=== PATIENT | female | born 1965 | race Caucasian/White ===

== ENCOUNTER 2017-07-18 18:43 | Inpatient (IN) ==
[2017-07-18] MEDS ORDERED: *HR* LORazepam 1 MG TABLET PO PRN (23:39)
[2017-07-18] MEDS ORDERED: Prochlorperazine 10 MG/2 ML VIAL IVP PRN (23:41)
[2017-07-18] MEDS ORDERED: Ondansetron 4 MG/2 ML VIAL IVP PRN (23:41)
[2017-07-18] MEDS ORDERED: Naloxone 0.4 MG/ML INJ IVP PRN (23:43)
[2017-07-18] MEDS ORDERED: 0.9 % Sodium Chloride 1,000 ML IVC SCH (23:45)
--- NOTE | 2017-07-18 23:52 | Internal Med History&Physical ---
Date of Encounter: 07/18/17 Time of Encounter: 23:00 Assessment and Plan (1) Colitis Current visit: Yes Status: Acute IV cipro/flagyl, NPO, IVF, conservative management for now. Question pancreatitis ?? on CT but unsure - consult GI to assist. Check C.diff given diarrhea (2) Afib Current visit: Yes Status: Acute New AFib, will start PO cardizem in attempt to spare gtt therapy. heparin gtt for now Qualifiers: Atrial fibrillation type: persistent Qualified Code(s): I48.1 - Persistent atrial fibrillation (3) HTN (hypertension), benign Current visit: Yes Status: Acute hold BP med given AFib and adjusting rate agents (4) Depression (emotion) Current visit: Yes Status: Acute stable. Qualifiers: Depression Type: other depression Qualified Code(s): F32.89 - Other specified depressive episodes (5) HLD (hyperlipidemia) Current visit: Yes Status: Acute stable Qualifiers: Hyperlipidemia type: mixed hyperlipidemia Qualified Code(s): E78.2 - Mixed hyperlipidemia Internal Medicine - H&P: HPI Chief complaint: N/V, fast HR History of present illness: Ms. Downey is a 52 year old female who presents with AFib RVR and colitis. She has had bladder mesh removed 3 weeks ago on by doctor in [place], [place] (mesh has been there for what was described as bladder sling surgery). Since then, she had never quite recovered and developed progressive 12-17 lbs weight loss, N/V - several times a day that improve with zofran. Also noted 3 x dark diarrhea last night. She noticed that her heart was racing/palpitating when she say her PCP today where EKG showed AFib. She was transferred to the ED [place] where CT A/P showed LUQ stranding suspicious for colitis, there was concern whether this could be pancreatitis ? as well but lipase/amylase were not elevated (however she does fulfill 2/3 criteria). She describes epigastric region pain with extreme nausea. 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" Past Med Surg Social Fam HX - Past Medical History Medical history: hyperlipidemia, hypertension Psychiatric history: anxiety - Past Surgical History Surgical History: hysterectomy - Social History Smoking Status: Current every day smoker Alcohol use: none Drug use: none - Additional Family History Additional family history: HTN Internal Medicine - H&P: Meds Albuterol Sulfate [Ventolin Hfa] 2 puff IH Q4H PRN 07/14/17 [History] Amlodipine Besylate 10 mg PO BID 07/14/17 [History] Aspirin [Ecotrin] 325 mg PO DAILY 07/14/17 [History] Atorvastatin [Lipitor] 40 mg PO HS 07/14/17 [History] DULoxetine [Cymbalta] 20 mg PO DAILY 07/14/17 [History] Duloxetine HCl [Cymbalta] 60 mg PO DAILY 07/14/17 [History] Ergocalciferol (VITAMIN D2) [Drisdol (50,000 Unit)] 50,000 unit PO QWEEK [History] Estrogens, Conjugated [Premarin Cream] 1 appl VG HS 07/14/17 [History] Gabapentin [Neurontin] 300 mg PO HS 07/14/17 [History] Isosorbide MONOnitrate (24 HR) [Imdur] 30 mg PO DAILY 07/14/17 [History] LORazepam [Ativan] 1 mg PO TID PRN 07/14/17 [History] Losartan Potassium [Cozaar] 100 mg PO DAILY 07/14/17 [History] Metoprolol [Lopressor] 50 mg PO BID 07/14/17 [History] Mirtazapine [Remeron] 15 mg PO HS 07/14/17 [History] [place]-3 Fatty Acids [Fish Oil] 1,200 mg PO BID 07/14/17 [History] Ondansetron ODT [Zofran ODT] 4 mg SL Q4HR #15 tab.rapdis 07/14/17 [Rx] Oxybutynin Chloride [Ditropan Xl] 10 mg PO DAILY 07/14/17 [History] Prazosin HCl [Minipress] 5 mg PO HS 07/14/17 [History] Spironolactone [Aldactone] 100 mg PO DAILY 07/14/17 [History] 3 Allergy/AdvReac Type Severity Reaction Status Date / Time lisinopril AdvReac Difficulty Verified 07/18/17 15:12 Swallowing morphine AdvReac Vomiting Verified 07/18/17 15:12 All Systems PM: A 10-system review of systems was performed and is negative for pertinent findings except as documented above in the HPI. Review of systems: ROS 14 point review of systems reviewed as best as possible given presentation. Pertinent positive or negative as per HPI or otherwise reviewed as negative - Constitutional Vitals: Temp Pulse Resp BP Pulse Ox 99.0 F 102 17 131/82 98 07/18/17 21:40 07/18/17 21:40 07/18/17 21:40 07/18/17 21:40 07/18/17 21:40 Exam: General - AAO x 3 Psych - Appropriate affect/speech. No agitation Eyes - QUINTON. Eye lids intact. No scleral icterus Heart - Irregularly irregular. S1 and S2 present. No added HS/murmurs appreciated. No elevated JVD appreciated. No calf swellings/erythema Lung - Adequate air entry b/l, No crackes/wheezes appreciated GI - Epigastric region pain. No rigidity or guarding. No hepatosplenomegaly/ ascites. BS+ - No CVA/suprapubic tenderness or palpable bladder distension Skin - Intact. No rash/petechiae/ecchymosis. Warm extremities
[2017-07-18] MEDS ORDERED: *HR* Heparin 5,000 UNIT/ML VIAL IVP PRN (23:58)
[2017-07-18] MEDS ORDERED: *HR* Heparin 5,000 UNIT/ML VIAL IVP ONE (23:58)
[2017-07-19] MEDS ORDERED: Ondansetron ODT 4 MG TAB.RAPDIS SL PRN
[2017-07-19] MEDS: dilTIAZem HCl 60 MG TABLET PO SCH ×5 (01:18→21:33)
[2017-07-19] MEDS: Heparin 25,000 UNIT/500 ML D5W 25,000 UNIT/500 ML MLS IVC SCH ×2 (01:18→19:47)
[2017-07-19 03:21] LABS: Hematocrit 32.1 % (35.3-44.9); Hemoglobin 10.6 g/dL (11.5-15.4); Mean Corpuscular Hemoglobin 28.1 pg (28.0-33.3); Mean Corpuscular Volume 85.1 fL (83.0-100.0); Mean Platelet Volume 9.5 fL (9.4-12.4); Platelet Count 366 K/mcL (140-400); Red Blood Count 3.77 M/mcL (3.82-4.97); Red Cell Distribution Width 13.9 % (11.5-14.5)
[2017-07-19 03:34] LABS: BUN/Creatinine Ratio 17 (6-26); Blood Urea Nitrogen 14 mg/dL (7-20); Calcium 8.5 mg/dL (8.6-10.8); Carbon Dioxide 23 mEq/L (19-29); Chloride 101 mEq/L (98-109); Glucose 121 mg/dL (70-99); Magnesium 1.8 mg/dL (1.6-2.6); Osmolality,Calculated 280 (280-300); Potassium 3.5 mEq/L (3.5-4.5); Sodium 134 mEq/L (136-145); eGFR For African Americans > 60 (> 60); eGFR For Non-African Americans > 60 (> 60)
[2017-07-19] MEDS: MetroNIDAZOLE 500 MG/100 ML 500 MG/100 ML BAG IVPB SCH ×3 (03:37→18:51)
[2017-07-19] MEDS: Aspirin Enteric Coated 325 MG Tablet PO SCH (09:29)
[2017-07-19] MEDS ORDERED: 0.9 % Sodium Chloride 1,000 ML IVC SCH (10:39)
--- NOTE | 2017-07-19 10:42 | Internal Med Progress Note ---
Date of Encounter: 07/19/17 Time of Encounter: 10:40 - Assessment and plan (1) Sepsis Current Visit: Yes Status: Acute Assessment and plan: pt does meet sepsis criteria with fever T max 101.7, elevated WBC, source of ins as colitis Cont empirical abx Cipro and Flagyl cont gentle IV hydration Started on clear liquid diet today trend on WBC Check stool for C . Diff Qualifiers: Qualified Code(s): A41.9 - Sepsis, unspecified organism (2) Colitis Current Visit: Yes Status: Acute Assessment and plan: Cont empirical abx Cipro and Flagyl cont gentle IV hydration Started on clear liquid diet today (3) New onset a-fib Current Visit: Yes Status: Acute Assessment and plan: New onset A fib - could be due to sepsis with colitis as well stress with recent bladder surgery rate controlled Cont home med Metoprolol 50mg BID pt was already give PO Cardizem..will cont that for now Ordered 2 D Echo Cardiology consulted With her recent Stroke like symptoms --she is high risk cont Heparin gtt for now (4) Diastolic CHF Current Visit: Yes Status: Chronic Assessment and plan: Reviewed 2 D Echo from 02/06 showed normal LVEF 60 %. but moderate LV diastolic dysfunction not in exacerbation cont gentle hydration only cont Metoprolol Qualifiers: Qualified Code(s): I50.32 - Chronic diastolic (congestive) heart failure (5) HTN (hypertension), benign Current Visit: Yes Status: Acute Assessment and plan: stable..cont current meds (6) HLD (hyperlipidemia) Current Visit: Yes Status: Acute Assessment and plan: on statin Qualifiers: Hyperlipidemia type: mixed hyperlipidemia Qualified Code(s): E78.2 - Mixed hyperlipidemia - Subjective Interval history: She has had bladder mesh removed 3 weeks ago on by doctor in [place], [place] (mesh has been there for what was described as bladder sling surgery). Since then, she had never quite recovered and developed progressive 12-17 lbs weight loss, N/V - several times a day that improve with zofran. Also noted 3 x dark diarrhea last night. She noticed that her heart was racing/palpitating when she say her PCP today where EKG showed AFib. She was transferred to the ED [place] where CT A/P showed LUQ stranding suspicious for colitis, there was concern whether this could be pancreatitis ? as well but lipase/amylase were not elevated (however she does fulfill 2/3 criteria). She describes epigastric region pain with extreme nausea. 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 She went to see PCP as f/u after recent surgery and mentioned about her Rt side weakness symptoms. PCP did an EKG which showed A fib and sent it over here. Denied any CP / SOB. Still has lower abdomen pain and nausea. Still has watery runny diarrhea. - Constitutional Vitals: Temp Pulse Resp BP Pulse Ox 100.6 F H 91 16 110/66 96 07/19/17 09:27 07/19/17 09:27 07/19/17 09:27 07/19/17 09:27 07/19/17 09:27 General appearance: Present: A&O X 3, no acute distress, answers questions appropriately - Head Head exam: Present: atraumatic, normal inspection - Respiratory Respiratory exam: Present: decreased breath sounds, tachypnea. Absent: respiratory distress, rhonchi - Cardiovascular Cardiovascular exam: Present: RRR, +S1, +S2. Absent: systolic murmur - GI/Abdominal GI/Abdominal exam: Present: normal bowel sounds, soft, tenderness (lower abdomen region). Absent: rebound, rigid - Extremities Exam Extremities exam: Absent: calf tenderness, pedal edema, tenderness - Neurological Exam Neurological exam: Present: alert, CN II-XII intact, oriented X3, reflexes normal, no focal deficits, strengths equal and symetr throughout. Absent: pronater drift, facial droop, speech deficit - Psychiatric Psychiatric exam: Present: normal affect, normal mood Internal Medicine: Result - Labs CBC & Chem 7: 07/19/17 03:12 07/19/17 03:12 Labs: Short CBC 07/19/17 Range/Units 03:12 WBC 18.9 H (4.3-11.1) K/mcL Hgb 10.6 L D (11.5-15.4) g/dL Hct 32.1 L (35.3-44.9) % Plt Count 366 (140-400) K/mcL BMP 07/19/17 03:12 Sodium 134 L D Potassium 3.5 Chloride 101 Carbon Dioxide 23 BUN 14 Creatinine 0.83 Glucose 121 H Calcium 8.5 L Consult Discharge Plan - Plan Referrals: Oleksandr Meier MD [Primary Care Provider] -
[2017-07-19] MEDS: Acetaminophen 325 MG TABLET PO PRN ×2 (12:00→18:56)
--- NOTE | 2017-07-19 12:24 | Cardiology Consult Note ---
Date of Encounter: 07/19/17 Time of Encounter: 12:00 Assessment and Plan (1) Sepsis Current Visit: Yes Status: Acute Per cardiology: -Elevated WBC, fever, and tachycardia. -Recent surgery 3 weeks ago. -ON IV ATB. -Management per primary service. Qualifiers: Sepsis type: sepsis due to unspecified organism Qualified Code(s): A41.9 - Sepsis, unspecified organism (2) New onset a-fib Current Visit: Yes Status: Acute Per cardiology: -New onset a.fib in the setting of sepsis. -On cardizem 60 QID, and beta darby. -Average HR 99. -On heparin drip and ASA. -Admits to recent CVA like symtpoms. CT head pending. -[id number] score 2 (gender and HTN). CUrrently on heparin drip until need for surgical intervention is ruled out. 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 -Stress 01/2016 negative for infarct or ischemia. -Echo 07/19/17 with LVEF 60%, indeterminate diastolic function, mild to moderately dilated left atrium, mild TR, all desai with normal motion. -Will start long acting cardizem tomorrow morning. 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 Discussion w patient/family: The assessment and plan as outlined above was discussed with the patient who expressed understanding and agreement. All questions were answered. Thank you for involving us in the care of your patient. Please call with any questions. Discussed and reviewed with . History of Present Illness Consult date: 07/19/17 Requesting physician: Isabella Márquez Consult reason: a.fib recent CVA symptoms Chief complaint: nausea/vomiting post op History of present illness: Ms. Downey is a 52 year old female with a relevant past medical history of HTN , hyperlipidemia, former tobacco user, depression, CKD. Patient reports she had bladder mesh placed "years ago" at the time of her hysterectomy. Patient states she has had trouble with pain since. Patient had surgery 3 weeks ago to remove mesh and replace with "cadaver tissue." Patient states she was in the hospital overnight and had one episode of vomiting prior to discharge. Patient states at home she has progressive weakness, increased vomiting, and fevers. Patient also reports chest discomfort when she would vomit. Patient reports palpitations. Patient states about a week ago, had right sided weakness that somewhat resolved. Patient denies current chest pain or palpitations. Past Med Surg Social Fam HX - Past Medical History Attestation: Yes The following information was validated with the patient. Source: patient, old records reviewed Medical history: atrial fibrillation, hyperlipidemia, hypertension, renal disease Psychiatric history: anxiety - Past Surgical History Surgical History: hysterectomy, other - Social History Smoking Status: Former smoker Smokeless Tobacco Status: No Alcohol use: none Drug use: none - Family History Father Age: 70 Living Status: Still Living Hx Family Cardiac Disorders: Yes Hx Family Respiratory Disorders: Yes (COPD) Hx Family Endocrine Disorder: Yes (DM type 2) Medications and Allergies Albuterol Sulfate [Ventolin Hfa] 2 puff IH Q4H PRN 07/14/17 [History] Amlodipine Besylate 10 mg PO BID 07/14/17 [History] Aspirin [Ecotrin] 325 mg PO DAILY 07/14/17 [History] Atorvastatin [Lipitor] 40 mg PO HS 07/14/17 [History] DULoxetine [Cymbalta] 80 mg PO DAILY 07/14/17 [History] Ergocalciferol (VITAMIN D2) [Drisdol (50,000 Unit)] 50,000 unit PO QWEEK [History] Estrogens, Conjugated [Premarin Cream] 1 appl VG HS 07/14/17 [History] Gabapentin [Neurontin] 300 mg PO HS 07/14/17 [History] Isosorbide MONOnitrate (24 HR) [Imdur] 30 mg PO DAILY 07/14/17 [History] LORazepam [Ativan] 1 mg PO TID PRN 07/14/17 [History] Losartan Potassium [Cozaar] 100 mg PO DAILY 07/14/17 [History] Metoprolol [Lopressor] 50 mg PO BID 07/14/17 [History] Mirtazapine [Remeron] 15 mg PO HS 07/14/17 [History] [place]-3 Fatty Acids [Fish Oil] 1,200 mg PO BID 07/14/17 [History] Ondansetron ODT [Zofran ODT] 4 mg SL Q4HR #15 tab.rapdis 07/14/17 [Rx] Oxybutynin Chloride [Ditropan Xl] 10 mg PO DAILY 07/14/17 [History] Prazosin HCl [Minipress] 5 mg PO HS 07/14/17 [History] Spironolactone [Aldactone] 100 mg PO DAILY 07/14/17 [History] Docusate [Colace] 100 mg PO BID 07/19/17 [History] 3 Allergy/AdvReac Type Severity Reaction Status Date / Time lisinopril AdvReac Difficulty Verified 07/18/17 15:12 Swallowing morphine AdvReac Vomiting Verified 07/18/17 15:12 All Systems Review: A 10-system review of systems was performed and is negative for pertinent findings except as documented above in the HPI. - Constitutional Constitutional: fever(s), weakness - Cardiovascular Cardiovascular: as per HPI, irregular heart rhythm, palpitations - Gastrointestinal Gastrointestinal: nausea Physical Examination Vital Signs, Last 4 Hours Temp Pulse Resp BP Pulse Ox 07/19/17 12:15 99.0 F 79 16 109/54 95 07/19/17 09:27 100.6 F H 91 16 110/66 96 General: Conversant, No Apparent Distress HEENT: Atraumatic, Normocephaly, Mucus Membranes Moist Neck: No JVD, Normal carotid pulses Cardiac: Normal S1 and S2, No Murmur, Other (Irregularly irregular) Lungs: Normal Breath Sounds, No Wheeze, Rales, Rhonchi Neuro: Alert and responsive, No focal deficits noted Abdomen: Soft, Non-Tender Skin: No rashes noted on visualized skin Musculoskeletal: No Chest Wall Tenderness, Other (RIght hand glass tube bender weaker than left. Bilateral foot strength equal. Smile symmetrical. ) Extremities: No Clubbing, No Cyanosis, No Edema, Normal Pulses Results 07/19/17 03:12 07/19/17 03:12 Lab Results Active Medications Acetaminophen (Tylenol) 650 mg PO Q6HR PRN PRN Reason: Fever Stop: 01/18/18 10:23 Last Admin: 07/19/17 12:00 Dose: 650 mg Albuterol Sulfate (Albuterol Inhaler) 2 puff IH Q4H PRN PRN Reason: Shortness Of Breath Stop: 01/17/18 23:40 Aspirin (Aspirin Ec) 325 mg PO DAILY [facility]ENDRA Stop: 01/18/18 09:01 Last Admin: 07/19/17 09:29 Dose: 325 mg Atorvastatin Calcium (Lipitor) 40 mg PO HS [facility] Stop: 01/18/18 21:01 Diltiazem HCl (Cardizem) 60 mg PO QID [facility] Stop: 01/17/18 23:46 Last Admin: 07/19/17 09:29 Dose: 60 mg Duloxetine HCl (Cymbalta) 20 mg PO DAILY KENDRA Stop: 01/18/18 09:01 Last Admin: 07/19/17 09:30 Dose: 20 mg Gabapentin (Neurontin) 300 mg PO HS [facility] Stop: 01/18/18 21:01 Heparin Sodium (Porcine) (Heparin) 5,800 unit 70 unit/kg (5800 unit) IVP Q6HR PRN PRN Reason: SEE COMMENTS Stop: 01/17/18 23:59 Last Admin: 07/19/17 09:36 Dose: 5,800 unit Heparin Sodium (Porcine) (Heparin) 2,900 unit 35 unit/kg (2900 unit) IVP Q6H PRN PRN Reason: SEE COMMENTS Stop: 01/17/18 23:59 Ciprofloxacin Lactate (Cipro Premix 400 Mg/200 Ml) 400 mg in 200 mls @ 200 mls/ hr IVPB Q12HR [facility] Stop: 01/18/18 06:01 Last Infusion: 07/19/17 08:16 Dose: Infused Metronidazole (Flagyl Premix 500 Mg/100 Ml) 500 mg in 100 mls @ 100 mls/hr IVPB Q8H [facility] Stop: 01/18/18 03:01 Last Admin: 07/19/17 12:00 Dose: 100 mls/hr Heparin Sodium/Dextrose (Heparin 25,000 Unit/500 Ml D5w) 25,000 unit in 500 mls @ 23.1 mls/hr IVC .[id number] KENDRA; 14 UNIT/KG/HR PRN Reason: Protocol Stop: 01/17/18 23:46 Last Titration: 07/19/17 09:31 Dose: 18.24 unit/kg/hr, 30.1 mls/hr Sodium Chloride (0.9 % Sodium Chloride) 1,000 mls @ 75 mls/hr IVC .[id number] [facility] Stop: 01/18/18 10:39 Lorazepam (Ativan) 1 mg PO TID PRN PRN Reason: Anxiety Stop: 01/17/18 23:40 Metoprolol Tartrate (Lopressor) 50 mg PO BID [facility] Stop: 01/18/18 09:01 Last Admin: 07/19/17 09:30 Dose: 50 mg Mirtazapine (Remeron) 15 mg PO HS [facility] Stop: 01/18/18 21:01 Naloxone HCl (Narcan) 0.4 mg IVP Q2MIN PRN PRN Reason: Opioid Reversal Stop: 01/17/18 23:44 Ondansetron HCl (Zofran) 4 mg IVP Q6HR PRN; Protocol PRN Reason: Nausea Stop: 01/17/18 23:42 Last Admin: 07/19/17 01:31 Dose: 4 mg Ondansetron HCl (Zofran Odt) 4 mg SL Q4HR PRN PRN Reason: Nausea Stop: 01/18/18 00:01 Oxybutynin Chloride (Ditropan) 5 mg PO BID [facility] Stop: 01/18/18 09:01 Last Admin: 07/19/17 09:30 Dose: 5 mg Prochlorperazine Edisylate (Compazine) 10 mg IVP Q6HR PRN PRN Reason: Nausea Stop: 01/17/18 23:42 Laboratory Tests 11/05/16 07/18/17 07/19/17 11:12 15:42 03:12 WBC 18.9 H Hgb 10.6 L D Potassium Creatinine Magnesium Troponin I 0.00 TSH 1.427 07/19/17 03:12 WBC Hgb Potassium 3.5 Creatinine 0.83 Magnesium 1.8 Troponin I TSH - Imaging and Cardiology Chest Xray: report reviewed Stress Test: report reviewed Echo: pending, report reviewed - EKG Interpretation EKG results cardiology: personally reviewed (ECG with atrial fibrillation with RVR.), other (Telemetry reviewed with average HR 99, atrial fibrillation. PVCs noted.) Consult Discharge Plan - Plan Referrals: Oleksandr Meier MD [Primary Care Provider] -
[2017-07-19] MEDS: *HR* Heparin 5,000 UNIT/ML VIAL IVP PRN (17:39)
[2017-07-19] MEDS: Mirtazapine 15 MG TABLET PO SCH (21:33)
[2017-07-19] MEDS: Gabapentin 300 MG CAPSULE PO SCH (21:34)
[2017-07-20 00:28] LABS: Basophils % 0.2 %; Eosinophils # 0.2 K/mcL (0.0-0.6); Eosinophils % 0.9 %; Hematocrit 32.1 % (35.3-44.9); Hemoglobin 10.2 g/dL (11.5-15.4); Immature Granulocytes % 1.6 % (0-4); Lymphocytes % 10.9 %; Mean Corpuscular HGB Conc 31.8 g/dL (31.6-35.5); Mean Corpuscular Hemoglobin 27.4 pg (28.0-33.3); Mean Corpuscular Volume 86.3 fL (83.0-100.0); Mean Platelet Volume 9.6 fL (9.4-12.4); Monocytes # 1.8 K/mcL (0.0-1.3); Neutrophils # 13.8 K/mcL (1.6-8.9); Nucleated Red Blood Cells 0.1 /100 WBC (0); Platelet Count 376 K/mcL (140-400); Red Blood Count 3.72 M/mcL (3.82-4.97); Red Cell Distribution Width 14.4 % (11.5-14.5); Segmented Neutrophils % 76.4 %
[2017-07-20 00:50] LABS: BUN/Creatinine Ratio 16 (6-26); Blood Urea Nitrogen 12 mg/dL (7-20); Calcium 8.9 mg/dL (8.6-10.8); Carbon Dioxide 20 mEq/L (19-29); Chloride 103 mEq/L (98-109); Glucose 137 mg/dL (70-99); Osmolality,Calculated 278 (280-300); Potassium 3.6 mEq/L (3.5-4.5); Sodium 133 mEq/L (136-145); eGFR For African Americans > 60 (> 60); eGFR For Non-African Americans > 60 (> 60)
[2017-07-20] MEDS: *HR* Heparin 5,000 UNIT/ML VIAL IVP PRN ×2 (00:56→08:33)
[2017-07-20] MEDS: MetroNIDAZOLE 500 MG/100 ML 500 MG/100 ML BAG IVPB SCH ×3 (03:43→19:34)
[2017-07-20] MEDS: Acetaminophen 325 MG TABLET PO PRN (05:42)
[2017-07-20] MEDS ORDERED: Diltiazem CD (24hr) 240 MG CAPSULE PO SCH (09:00)
[2017-07-20] MEDS: Aspirin Enteric Coated 325 MG Tablet PO SCH (09:18)
--- NOTE | 2017-07-20 09:58 | Internal Med Progress Note ---
Date of Encounter: 07/20/17 Time of Encounter: 09:53 - Assessment and plan (1) Sepsis Current Visit: Yes Status: Acute Assessment and plan: pt did meet sepsis criteria with fever T max 101.7, elevated WBC, source of inf as colitis Cont empirical abx Cipro and Flagyl Started on clear liquid diet today WBC is still elevated ruled out C . Diff Qualifiers: Sepsis type: sepsis due to unspecified organism Qualified Code(s): A41.9 - Sepsis, unspecified organism (2) Colitis Current Visit: Yes Status: Acute Assessment and plan: Cont empirical abx Cipro and Flagyl tolerating clear liquid diet well Still has mild abdominal pain and her WBC is still elevated Consulted surgery for further evaluation May repeat another CT of abd / Pelvis with PO contrast in AM if her symptoms does not get better by tomorrow (3) New onset a-fib Current Visit: Yes Status: Acute Assessment and plan: New onset A fib - could be due to sepsis with colitis as well stress with recent bladder surgery rate controlled Cont home med Metoprolol 50mg BID Reviewed 2 D Echo - Normal LVEF, indeterminate diastolic dysfunction Cardiology on board.. recommend to continue current care With her recent Stroke like symptoms --she is high risk cont Heparin gtt for now (4) Diastolic CHF Current Visit: Yes Status: Chronic Assessment and plan: Reviewed 2 D Echo not in exacerbation cont Metoprolol will use Lasix PRN Qualifiers: Qualified Code(s): I50.32 - Chronic diastolic (congestive) heart failure (5) HTN (hypertension), benign Current Visit: Yes Status: Acute Assessment and plan: stable..cont current meds (6) HLD (hyperlipidemia) Current Visit: Yes Status: Acute Assessment and plan: on statin Qualifiers: Hyperlipidemia type: mixed hyperlipidemia Qualified Code(s): E78.2 - Mixed hyperlipidemia - Subjective Interval history: She has had bladder mesh removed 3 weeks ago on by doctor in [place], [place] (mesh has been there for what was described as bladder sling surgery). Since then, she had never quite recovered and developed progressive 12-17 lbs weight loss, N/V - several times a day that improve with zofran. Also noted 3 x dark diarrhea last night. She noticed that her heart was racing/palpitating when she say her PCP today where EKG showed AFib. She was transferred to the ED [place] where CT A/P showed LUQ stranding suspicious for colitis, there was concern whether this could be pancreatitis ? as well but lipase/amylase were not elevated (however she does fulfill 2/3 criteria). She describes epigastric region pain with extreme nausea. 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 She went to see PCP as f/u after recent surgery and mentioned about her Rt side weakness symptoms. PCP did an EKG which showed A fib and sent it over here. She is resting comfortably today. Denied any CP / SOB, however does have some [place]. Still has lower abdomen pain and nausea. No more diarrhea. - Constitutional Vitals: Temp Pulse Resp BP Pulse Ox 98.1 F 92 21 102/52 98 07/20/17 07:00 07/20/17 07:00 07/20/17 07:00 07/20/17 07:00 07/20/17 07:00 General appearance: Present: A&O X 3, no acute distress, answers questions appropriately - Head Head exam: Present: atraumatic, normal inspection - Respiratory Respiratory exam: Present: decreased breath sounds, wheezes. Absent: rales, respiratory distress, rhonchi - Cardiovascular Cardiovascular exam: Present: RRR, +S1, +S2. Absent: systolic murmur - GI/Abdominal GI/Abdominal exam: Present: normal bowel sounds, soft, tenderness (LUQ and LLL) . Absent: rebound, rigid - Extremities Exam Extremities exam: Absent: calf tenderness, pedal edema, tenderness - Neurological Exam Neurological exam: Present: alert, oriented X3 - Psychiatric Psychiatric exam: Present: normal affect, normal mood Internal Medicine: Result - Labs CBC & Chem 7: 07/20/17 00:19 07/20/17 00:19 Labs: Short CBC 07/20/17 Range/Units 00:19 WBC 18.1 H (4.3-11.1) K/mcL Hgb 10.2 L (11.5-15.4) g/dL Hct 32.1 L (35.3-44.9) % Plt Count 376 (140-400) K/mcL Neutrophils # 13.8 H (1.6-8.9) K/mcL BMP 07/20/17 00:19 Sodium 133 L Potassium 3.6 Chloride 103 Carbon Dioxide 20 BUN 12 Creatinine 0.75 Glucose 137 H Calcium 8.9 - Impressions Impressions Head CT 07/19/17 10:37 IMPRESSION: No acute intracranial abnormality. D/ / Murphy Garcia MD / Murphy Garcia MD Interpreting Provider: Murphy Garcia MD Consult Discharge Plan - Plan Referrals: Oleksandr Meier MD [Primary Care Provider] -
--- NOTE | 2017-07-20 10:32 | Cardiology Progress Note ---
Date of Encounter: 07/20/17 Time of Encounter: 10:15 Assessment and Plan (1) Sepsis Current Visit: Yes Status: Acute Per cardiology: -Elevated WBC, fever, and tachycardia. -Recent surgery 3 weeks ago. -ON IV ATB. -Management per primary service. Qualifiers: Sepsis type: sepsis due to unspecified organism Qualified Code(s): A41.9 - Sepsis, unspecified organism (2) New onset a-fib Current Visit: Yes Status: Acute Per cardiology: -New onset a.fib in the setting of sepsis. -On cardizem and beta darby. -Average HR 73, atrial fibrillation. -On heparin drip and ASA. -Admits to recent CVA like symtpoms. CT head negative.. -[id number] score 2 (gender and HTN). CUrrently on heparin drip until need for surgical intervention is ruled out. Recommend long term acute care registered nurse anticoagulation. Surgical servcies has been consulted. -Stress 01/2016 negative for infarct or ischemia. -Echo 07/19/17 with LVEF 60%, indeterminate diastolic function, mild to moderately dilated left atrium, mild TR, all desai with normal motion. -Recommend long term acute care registered nurse anticoagulation once need for surgical intervention is ruled out. Discussion w patient/family: The assessment and plan as outlined above was discussed with the patient who expressed understanding and agreement. All questions were answered. Thank you for involving us in the care of your patient. Please call with any questions. Discussed and reviewed with . Subjective Principal diagnosis: Sepsis Interval history: Patient states her pain is worse today. Patient denies palpitations or fluttering. Objective Vital Signs, Last 4 Hours Temp Pulse Resp BP Pulse Ox 07/20/17 10:20 71 105/43 07/20/17 07:00 98.1 F 92 21 102/52 98 General: Conversant, No Apparent Distress HEENT: Atraumatic, Normocephaly, Mucus Membranes Moist Neck: No JVD, Normal carotid pulses Cardiac: Normal S1 and S2, No Murmur, Other (Irregularly irregular) Lungs: Normal Breath Sounds, No Wheeze, Rales, Rhonchi Neuro: Alert and responsive, No focal deficits noted Abdomen: Soft, Other (Tender) Skin: No rashes noted on visualized skin Musculoskeletal: No Chest Wall Tenderness Extremities: No Clubbing, No Cyanosis, No Edema, Normal Pulses Results 07/20/17 00:19 07/20/17 00:19 Lab Results Impressions Head CT 07/19/17 10:37 IMPRESSION: No acute intracranial abnormality. D/ / Murphy Garcia MD / Murphy Garcia MD Interpreting Provider: Murphy Garcia MD Active Medications Acetaminophen (Tylenol) 650 mg PO Q6HR PRN PRN Reason: Fever Stop: 01/18/18 10:23 Last Admin: 07/20/17 05:42 Dose: 650 mg Albuterol Sulfate (Albuterol Inhaler) 2 puff IH Q4H PRN PRN Reason: Shortness Of Breath Stop: 01/17/18 23:40 Aspirin (Aspirin Ec) 325 mg PO DAILY KENDRA Stop: 01/18/18 09:01 Last Admin: 07/20/17 09:18 Dose: 325 mg Atorvastatin Calcium (Lipitor) 40 mg PO HS KENDRA Stop: 01/18/18 21:01 Last Admin: 07/19/17 21:33 Dose: 40 mg Diltiazem HCl (Cardizem Cd) 240 mg PO DAILY KENDRA Stop: 01/19/18 09:01 Duloxetine HCl (Cymbalta) 20 mg PO DAILY KENDRA Stop: 01/18/18 09:01 Last Admin: 07/20/17 09:18 Dose: 20 mg Gabapentin (Neurontin) 300 mg PO HS KENDRA Stop: 01/18/18 21:01 Last Admin: 07/19/17 21:34 Dose: 300 mg Heparin Sodium (Porcine) (Heparin) 5,800 unit 70 unit/kg (5800 unit) IVP Q6HR PRN PRN Reason: SEE COMMENTS Stop: 01/17/18 23:59 Last Admin: 07/19/17 09:36 Dose: 5,800 unit Heparin Sodium (Porcine) (Heparin) 2,900 unit 35 unit/kg (2900 unit) IVP Q6H PRN PRN Reason: SEE COMMENTS Stop: 01/17/18 23:59 Last Admin: 07/20/17 08:33 Dose: 2,900 unit Ciprofloxacin Lactate (Cipro Premix 400 Mg/200 Ml) 400 mg in 200 mls @ 200 mls/ hr IVPB Q12HR KENDRA Stop: 01/18/18 06:01 Last Infusion: 07/20/17 08:15 Dose: Infused Metronidazole (Flagyl Premix 500 Mg/100 Ml) 500 mg in 100 mls @ 100 mls/hr IVPB Q8H [facility] Stop: 01/18/18 03:01 Last Infusion: 07/20/17 08:14 Dose: Infused Heparin Sodium/Dextrose (Heparin 25,000 Unit/500 Ml D5w) 25,000 unit in 500 mls @ 23.1 mls/hr IVC .[id number] KENDRA; 14 UNIT/KG/HR PRN Reason: Protocol Stop: 01/17/18 23:46 Last Titration: 07/20/17 08:30 Dose: 23.81 unit/kg/hr, 39.3 mls/hr Lorazepam (Ativan) 1 mg PO TID PRN PRN Reason: Anxiety Stop: 01/17/18 23:40 Metoprolol Tartrate (Lopressor) 50 mg PO BID [facility] Stop: 01/18/18 09:01 Last Admin: 07/20/17 09:19 Dose: 50 mg Mirtazapine (Remeron) 15 mg PO HS [facility] Stop: 01/18/18 21:01 Last Admin: 07/19/17 21:33 Dose: 15 mg Naloxone HCl (Narcan) 0.4 mg IVP Q2MIN PRN PRN Reason: Opioid Reversal Stop: 01/17/18 23:44 Ondansetron HCl (Zofran) 4 mg IVP Q6HR PRN; Protocol PRN Reason: Nausea Stop: 01/17/18 23:42 Last Admin: 07/19/17 01:31 Dose: 4 mg Ondansetron HCl (Zofran Odt) 4 mg SL Q4HR PRN PRN Reason: Nausea Stop: 01/18/18 00:01 Oxybutynin Chloride (Ditropan) 5 mg PO BID [facility] Stop: 01/18/18 09:01 Last Admin: 07/20/17 09:18 Dose: 5 mg Prochlorperazine Edisylate (Compazine) 10 mg IVP Q6HR PRN PRN Reason: Nausea Stop: 01/17/18 23:42 Laboratory Tests 07/20/17 07/20/17 00:19 00:19 WBC 18.1 H Hgb 10.2 L Potassium 3.6 Creatinine 0.75 Magnesium 2.0 - Imaging and Cardiology Chest Xray: report reviewed Echo: report reviewed - EKG Interpretation EKG results cardiology: other (Telemetry reviewed with average HR 73, atrial fibrillation. Longest pause 2.7 seconds. PVCs noted.) Consult Discharge Plan - Plan Referrals: Oleksandr Meier MD [Primary Care Provider] -
[2017-07-20 11:19] LABS: Albumin/Globulin Ratio 0.4 (1.1-2.2); Bilirubin,Direct 0.4 mg/dL (0.0-0.5); Total Protein 5.7 g/dL (6.0-8.3)
[2017-07-20 11:21] LABS: Albumin 1.7 g/dL (3.5-5.0)
[2017-07-20 11:41] LABS: Bilirubin,Total 0.4 mg/dL (0.2-1.2)
[2017-07-20] MEDS: Heparin 25,000 UNIT/500 ML D5W 25,000 UNIT/500 ML MLS IVC SCH (12:04)
--- NOTE | 2017-07-20 14:13 | General Surgery Consult Note ---
<Triston Gross - Last Filed: 07/20/17 14:11> Date of Encounter: 07/20/17 Time of Encounter: 10:00 Assessment and Plan (1) Colitis Current Visit: Yes Status: Acute Most likely, given normal amylase, lipase, and LFTs C. Diff negative Will follow clinically No need for surgical intervention at this time Continue antibiotics (2) Afib Current Visit: Yes Status: Acute Management per cardiology Qualifiers: Atrial fibrillation type: persistent Qualified Code(s): I48.1 - Persistent atrial fibrillation History of Present Illness Consult date: 07/20/17 Reason for consult: other (colitis vs pancreatitis) History of present illness: Susan Downey is a 52 yo female who presents with "bladder infection." Patient states that she had removal of bladder mesh replaced with sling on 06/26/17 in [place], [place]. Since then she developed fever, nausea, vomiting and weight loss. She denies any abdominal pain. CT showed circumferential wall thickening of the splenic flexure in addition to stranding and fluid in the LUQ encasing the pancreatic tail, possibly representing pancreatitis. Past Med Surg Social Fam HX - Past Medical History Medical history: atrial fibrillation, hyperlipidemia, hypertension, renal disease Psychiatric history: anxiety - Past Surgical History Surgical History: hysterectomy, other - Social History Smoking Status: Former smoker Smokeless Tobacco Status: No Alcohol use: none Drug use: none - Family History Father Age: 70 Living Status: Still Living Hx Family Cardiac Disorders: Yes Hx Family Respiratory Disorders: Yes (COPD) Hx Family Endocrine Disorder: Yes (DM type 2) Medications and Allergies Albuterol Sulfate [Ventolin Hfa] 2 puff IH Q4H PRN 07/14/17 [History] Amlodipine Besylate 10 mg PO BID 07/14/17 [History] Aspirin [Ecotrin] 325 mg PO DAILY 07/14/17 [History] Atorvastatin [Lipitor] 40 mg PO HS 07/14/17 [History] DULoxetine [Cymbalta] 80 mg PO DAILY 07/14/17 [History] Ergocalciferol (VITAMIN D2) [Drisdol (50,000 Unit)] 50,000 unit PO QWEEK [History] Estrogens, Conjugated [Premarin Cream] 1 appl VG HS 07/14/17 [History] Gabapentin [Neurontin] 300 mg PO HS 07/14/17 [History] Isosorbide MONOnitrate (24 HR) [Imdur] 30 mg PO DAILY 07/14/17 [History] LORazepam [Ativan] 1 mg PO TID PRN 07/14/17 [History] Losartan Potassium [Cozaar] 100 mg PO DAILY 07/14/17 [History] Metoprolol [Lopressor] 50 mg PO BID 07/14/17 [History] Mirtazapine [Remeron] 15 mg PO HS 07/14/17 [History] [place]-3 Fatty Acids [Fish Oil] 1,200 mg PO BID 07/14/17 [History] Ondansetron ODT [Zofran ODT] 4 mg SL Q4HR #15 tab.rapdis 07/14/17 [Rx] Oxybutynin Chloride [Ditropan Xl] 10 mg PO DAILY 07/14/17 [History] Prazosin HCl [Minipress] 5 mg PO HS 07/14/17 [History] Spironolactone [Aldactone] 100 mg PO DAILY 07/14/17 [History] Docusate [Colace] 100 mg PO BID 07/19/17 [History] 3 Allergy/AdvReac Type Severity Reaction Status Date / Time lisinopril AdvReac Difficulty Verified 07/18/17 15:12 Swallowing morphine AdvReac Vomiting Verified 07/18/17 15:12 Review of Systems All systems PM: A 10-system review of systems was performed and is negative for pertinent findings except as documented above in the HPI. - Constitutional anorexia, fever(s), weight loss - Gastrointestinal nausea, vomiting, no abdominal pain General Surgery Exam Initial Vital Signs Temp Pulse Resp BP Pulse Ox 99.2 F 102 22 132/82 98 07/18/17 21:37 07/18/17 21:37 07/18/17 21:37 07/18/17 21:37 07/18/17 21:37 - General physical appearance well developed, well nourished, no distress, no pain - Eyes normal ocular movement - ENT atraumatic, normocephalic - Respiratory normal expansion, normal respiratory effort, clear to auscultation - Cardiovascular Cardiovascular exam: Present: irregular rhythm - Abdomen Abdomen general surgery: Present: bowel sounds present, soft, non tender - Musculoskeletal Present: normal posture - Psychiatric Psychiatric general surgery: Present: appropriate, speech is normal Exam Initial Vital Signs Temp Pulse Resp BP Pulse Ox 99.2 F 102 22 132/82 98 07/18/17 21:37 07/18/17 21:37 07/18/17 21:37 07/18/17 21:37 07/18/17 21:37 Results - Labs 07/20/17 00:19 07/20/17 00:19 Abnormal lab results WBC 18.1 K/mcL (4.3-11.1) H 07/20/17 00:19 RBC 3.72 M/mcL (3.82-4.97) L 07/20/17 00:19 Hgb 10.2 g/dL (11.5-15.4) L 07/20/17 00:19 Hct 32.1 % (35.3-44.9) L 07/20/17 00:19 MCH 27.4 pg (28.0-33.3) L 07/20/17 00:19 Neutrophils # 13.8 K/mcL (1.6-8.9) H 07/20/17 00:19 Monocytes # 1.8 K/mcL (0.0-1.3) H 07/20/17 00:19 Nucleated RBCs/100 WBC 0.1 /100 WBC (0) H 07/20/17 00:19 APTT 53.8 Seconds (26.0-36.0) H 07/20/17 07:19 Sodium 133 mEq/L (136-145) L 07/20/17 00:19 Glucose 137 mg/dL (70-99) H 07/20/17 00:19 POC Glucose 141 (58-89) H 07/20/17 11:49 Calculated Osmolality 278 (280-300) L 07/20/17 00:19 Alkaline Phosphatase 169 Units/L (38-126) H 07/20/17 10:54 Serum Total Protein 5.7 g/dL (6.0-8.3) L D 07/20/17 10:54 Albumin 1.7 g/dL (3.5-5.0) L D 07/20/17 10:54 Globulin 4.0 g/dL (2.4-3.5) H 07/20/17 10:54 Albumin/Globulin Ratio 0.4 (1.1-2.2) L 07/20/17 10:54 Diabetes panel 07/20/17 07/20/17 Range/Units 00:19 10:54 Sodium 133 L (136-145) mEq/L Potassium 3.6 (3.5-4.5) mEq/L Chloride 103 (98-109) mEq/L Carbon Dioxide 20 (19-29) mEq/L BUN 12 (7-20) mg/dL Creatinine 0.75 (0.57-1.11) mg/dL Glucose 137 H (70-99) mg/dL Calcium 8.9 (8.6-10.8) mg/dL AST 23 (5-34) Units/L ALT 19 (0-55) Units/L Alkaline Phosphatase 169 H (38-126) Units/L Albumin 1.7 L D (3.5-5.0) g/dL Calcium panel 07/20/17 07/20/17 Range/Units 00:19 10:54 Calcium 8.9 (8.6-10.8) mg/dL Albumin 1.7 L D (3.5-5.0) g/dL Pituitary panel 07/20/17 Range/Units 00:19 Sodium 133 L (136-145) mEq/L Potassium 3.6 (3.5-4.5) mEq/L Chloride 103 (98-109) mEq/L Carbon Dioxide 20 (19-29) mEq/L BUN 12 (7-20) mg/dL Creatinine 0.75 (0.57-1.11) mg/dL Glucose 137 H (70-99) mg/dL Calcium 8.9 (8.6-10.8) mg/dL Adrenal panel 07/20/17 07/20/17 Range/Units 00:19 10:54 Sodium 133 L (136-145) mEq/L Potassium 3.6 (3.5-4.5) mEq/L Chloride 103 (98-109) mEq/L Carbon Dioxide 20 (19-29) mEq/L BUN 12 (7-20) mg/dL Creatinine 0.75 (0.57-1.11) mg/dL Glucose 137 H (70-99) mg/dL Calcium 8.9 (8.6-10.8) mg/dL Total Bilirubin 0.4 (0.2-1.2) mg/dL AST 23 (5-34) Units/L ALT 19 (0-55) Units/L Alkaline Phosphatase 169 H (38-126) Units/L Albumin 1.7 L D (3.5-5.0) g/dL All other labs normal. - Imaging CT scan - abdomen: report reviewed ( CT/CT abd pelvis wo no iv no oral IMPRESSION: 1. Significant stranding and heterogeneous ill-defined fluid in the left upper quadrant. This encases the pancreatic tail and is possibly secondary to pancreatitis. Recommend correlation with serum lipase and amylase. The splenic flexure of the colon also demonstrate circumferential wall thickening in the differential includes colitis, however, this is thought to more likely be secondary involvement. 2. Left basilar consolidation and trace left pleural effusion. 3. Status post left nephrectomy. D/T: 2016 17:32:26 / Sam Cutler MD / Sam Cutler MD Interpreting Provider: Sam Cutler MD Electronically signed by Sam Cutler MD on 17:41:17), image reviewed Consult Discharge Plan - Plan Referrals: Oleksandr Meier MD [Primary Care Provider] - <Jeovany Oconnell T - Last Filed: 07/21/17 09:21> Date of Encounter: 07/20/17 Review of Systems All systems PM: A 10-system review of systems was performed and is negative for pertinent findings except as documented above in the HPI. General Surgery Exam Initial Vital Signs Temp Pulse Resp BP Pulse Ox 99.2 F 102 22 132/82 98 07/18/17 21:37 07/18/17 21:37 07/18/17 21:37 07/18/17 21:37 07/18/17 21:37 Exam Initial Vital Signs Temp Pulse Resp BP Pulse Ox 99.2 F 102 22 132/82 98 07/18/17 21:37 07/18/17 21:37 07/18/17 21:37 07/18/17 21:37 07/18/17 21:37 Results - Labs 07/21/17 04:53 07/21/17 04:53 Abnormal lab results WBC 21.2 K/mcL (4.3-11.1) H 07/21/17 04:53 RBC 3.45 M/mcL (3.82-4.97) L 07/21/17 04:53 Hgb 9.7 g/dL (11.5-15.4) L 07/21/17 04:53 Hct 29.6 % (35.3-44.9) L 07/21/17 04:53 RDW 14.8 % (11.5-14.5) H 07/21/17 04:53 Plt Count 432 K/mcL (140-400) H 07/21/17 04:53 Neutrophils # 16.2 K/mcL (1.6-8.9) H 07/21/17 04:53 Monocytes # 1.9 K/mcL (0.0-1.3) H 07/21/17 04:53 Nucleated RBCs/100 WBC 0.2 /100 WBC (0) H 07/21/17 04:53 APTT 87.9 Seconds (26.0-36.0) H D 07/21/17 06:39 Heparin Anti-Xa, Unfract 0.81 IU/mL (0.30-0.70) H 07/20/17 14:08 Sodium 133 mEq/L (136-145) L 07/21/17 04:53 Potassium 3.3 mEq/L (3.5-4.5) L 07/21/17 04:53 Glucose 136 mg/dL (70-99) H 07/21/17 04:53 POC Glucose 141 (58-89) H 07/20/17 11:49 Calculated Osmolality 277 (280-300) L 07/21/17 04:53 Magnesium 1.5 mg/dL (1.6-2.6) L 07/21/17 04:53 Alkaline Phosphatase 169 Units/L (38-126) H 07/20/17 10:54 Serum Total Protein 5.7 g/dL (6.0-8.3) L D 07/20/17 10:54 Albumin 1.7 g/dL (3.5-5.0) L D 07/20/17 10:54 Globulin 4.0 g/dL (2.4-3.5) H 07/20/17 10:54 Albumin/Globulin Ratio 0.4 (1.1-2.2) L 07/20/17 10:54 Diabetes panel 07/20/17 07/21/17 Range/Units 10:54 04:53 Sodium 133 L (136-145) mEq/L Potassium 3.3 L (3.5-4.5) mEq/L Chloride 102 (98-109) mEq/L Carbon Dioxide 21 (19-29) mEq/L BUN 11 (7-20) mg/dL Creatinine 0.80 (0.57-1.11) mg/dL Glucose 136 H (70-99) mg/dL Calcium 8.8 (8.6-10.8) mg/dL AST 23 (5-34) Units/L ALT 19 (0-55) Units/L Alkaline Phosphatase 169 H (38-126) Units/L Albumin 1.7 L D (3.5-5.0) g/dL Calcium panel 07/20/17 07/21/17 Range/Units 10:54 04:53 Calcium 8.8 (8.6-10.8) mg/dL Albumin 1.7 L D (3.5-5.0) g/dL Pituitary panel 07/21/17 Range/Units 04:53 Sodium 133 L (136-145) mEq/L Potassium 3.3 L (3.5-4.5) mEq/L Chloride 102 (98-109) mEq/L Carbon Dioxide 21 (19-29) mEq/L BUN 11 (7-20) mg/dL Creatinine 0.80 (0.57-1.11) mg/dL Glucose 136 H (70-99) mg/dL Calcium 8.8 (8.6-10.8) mg/dL Adrenal panel 07/20/17 07/21/17 Range/Units 10:54 04:53 Sodium 133 L (136-145) mEq/L Potassium 3.3 L (3.5-4.5) mEq/L Chloride 102 (98-109) mEq/L Carbon Dioxide 21 (19-29) mEq/L BUN 11 (7-20) mg/dL Creatinine 0.80 (0.57-1.11) mg/dL Glucose 136 H (70-99) mg/dL Calcium 8.8 (8.6-10.8) mg/dL Total Bilirubin 0.4 (0.2-1.2) mg/dL AST 23 (5-34) Units/L ALT 19 (0-55) Units/L Alkaline Phosphatase 169 H (38-126) Units/L Albumin 1.7 L D (3.5-5.0) g/dL All other labs normal. - Attending Attestation I examined this patient and my medical decision-making was reviewed with the Resident Physician. I agree with the documented findings, disposition and treatment plan as described except to the extent set forth below The patient is seen and evaluated on rounds with the resident. She has mild left upper quadrant pain. A personal review the CAT scan. She has segmental colitis which may be ischemic in nature. The surrounding fluid appears to be edema. This also involved tail of the pancreas and I have ordered amylase and lipase to rule out pancreatitis. We will be glad to follow along with you. There is no indication for acute surgical intervention Jeovany Oconnell MD FACS
[2017-07-20 14:48] LABS: Activated Partial Thrombo Time 114.9 Seconds (26.0-36.0)
[2017-07-20 15:00] LABS: Heparin anti-factor XA UFH 0.81 IU/mL (0.30-0.70)
[2017-07-20] MEDS: Diltiazem CD (24hr) 180 MG CAPSULE PO SCH (15:37)
[2017-07-20] MEDS: Gabapentin 300 MG CAPSULE PO SCH (19:34)
[2017-07-20] MEDS: Mirtazapine 15 MG TABLET PO SCH (19:34)
[2017-07-21] MEDS: *HR* Heparin 5,000 UNIT/ML VIAL IVP PRN (01:15)
[2017-07-21] MEDS: Heparin 25,000 UNIT/500 ML D5W 25,000 UNIT/500 ML MLS IVC SCH ×2 (03:20→18:09)
[2017-07-21] MEDS: MetroNIDAZOLE 500 MG/100 ML 500 MG/100 ML BAG IVPB SCH ×2 (03:26→13:02)
[2017-07-21 05:05] LABS: Basophils # 0.1 K/mcL (0.0-0.2); Basophils % 0.3 %; Eosinophils # 0.2 K/mcL (0.0-0.6); Eosinophils % 0.8 %; Hematocrit 29.6 % (35.3-44.9); Hemoglobin 9.7 g/dL (11.5-15.4); Lymphocytes # 2.4 K/mcL (0.6-4.6); Lymphocytes % 11.2 %; Mean Corpuscular HGB Conc 32.8 g/dL (31.6-35.5); Mean Corpuscular Hemoglobin 28.1 pg (28.0-33.3); Mean Corpuscular Volume 85.8 fL (83.0-100.0); Mean Platelet Volume 9.6 fL (9.4-12.4); Monocytes # 1.9 K/mcL (0.0-1.3); Monocytes % 9.2 %; Neutrophils # 16.2 K/mcL (1.6-8.9); Nucleated Red Blood Cells 0.2 /100 WBC (0); Platelet Count 432 K/mcL (140-400); Red Blood Count 3.45 M/mcL (3.82-4.97); Red Cell Distribution Width 14.8 % (11.5-14.5); Segmented Neutrophils % 76.5 %
[2017-07-21 05:17] LABS: BUN/Creatinine Ratio 14 (6-26); Blood Urea Nitrogen 11 mg/dL (7-20); Carbon Dioxide 21 mEq/L (19-29); Chloride 102 mEq/L (98-109); Glucose 136 mg/dL (70-99); Potassium 3.3 mEq/L (3.5-4.5); Sodium 133 mEq/L (136-145); eGFR For African Americans > 60 (> 60); eGFR For Non-African Americans > 60 (> 60)
[2017-07-21 05:18] LABS: Calcium 8.8 mg/dL (8.6-10.8); Magnesium 1.5 mg/dL (1.6-2.6); Osmolality,Calculated 277 (280-300)
[2017-07-21] MEDS: Aspirin Enteric Coated 325 MG Tablet PO SCH (09:55)
--- NOTE | 2017-07-21 10:02 | General Surgery Progress Note ---
Date of Encounter: 07/21/17 Time of Encounter: 07:25 - Assessment and Plan (1) Colitis Current Visit: Yes Status: Acute The patient had a short segment colitis. Her white blood cell count has increased to 21,000. She does not appear to have pancreatitis. At this point I would continue to follow her conservatively. If she continues to have elevated white count trending upwards repeat CAT scan may be indicated. There is no indication for acute surgical intervention. Subjective Narrative: The patient states that she only has mild left-sided abdominal pain at this point. She did have a bowel movement. She said this was a normal bowel movement with no evidence of blood or diarrhea I did order an amylase and lipase yesterday that came back normal area this does not appear to be pancreatitis. She does appear to have segmental colitis and abnormal CAT scan. This may be ischemic or infectious. Her white blood cell count went up to date 21,000 and this is of concern. Her abdominal examination however has improved. We would recommend colonoscopy during the convalescent period in 4-6 weeks to investigate the abnormal CAT scan. Otherwise, she should be treated with conservative measures. There is no indication for acute surgery. Objective Vital Signs - Last 8 Hours Temp Pulse Resp BP Pulse Ox 07/21/17 07:16 100.2 F H 88 16 113/56 94 07/21/17 04:10 16 92 07/21/17 03:01 99.0 F 86 18 107/60 92 Intake and Output 07/20/17 07/21/17 07/21/17 23:59 07:59 15:59 Intake Total 1850 / 1850 387.0 / 387.0 Output Total 550 / 550 0 / 0 Balance 1300 / 1300 387.0 / 387.0 Intake: IV Fluids 300 / 300 387.0 / 387.0 Heparin 25,000 UNIT/500 0 / 0 387.0 / 387.0 ML D5W 25,000 unit In 500 ml @ 14 UNIT/KG/HR 23.1 mls/hr IVC .[id number] KENDRA Rx#:[id number] Cipro Premix 400 MG/200 200 / 200 ML 400 mg In 200 ml @ 200 mls/hr IVPB Q12HR KENDRA Rx #:[id number] Flagyl Premix 500 MG/100 100 / 100 ML 500 mg In 100 ml @ 100 mls/hr IVPB Q8H KENDRA Rx#: [id number] Oral 1550 / 1550 0 / 0 Output: Urine 550 / 550 0 / 0 Other: Stool Size Moderate Stool Consistency soft formed Stool Color Brown # Voids 1 Weight 83.8 kg Patient Weight 07/21/17 23:59 Weight 83.8 kg - General physical appearance obese - Respiratory normal expansion, normal respiratory effort, clear to percussion, clear to auscultation - Cardiovascular Cardiovascular exam: Present: irregular rhythm, no murmurs/rubs/gallops - Abdomen Abdomen: Present: bowel sounds present, soft, tender Abdominal Tenderness: LUQ (Mild tenderness with no guarding or rebound) - Psychiatric oriented to time, oriented to person, oriented to place, speech is normal, memory intact - Labs 07/21/17 04:53 07/21/17 04:53 Diabetes panel 07/20/17 07/21/17 Range/Units 10:54 04:53 Sodium 133 L (136-145) mEq/L Potassium 3.3 L (3.5-4.5) mEq/L Chloride 102 (98-109) mEq/L Carbon Dioxide 21 (19-29) mEq/L BUN 11 (7-20) mg/dL Creatinine 0.80 (0.57-1.11) mg/dL Glucose 136 H (70-99) mg/dL Calcium 8.8 (8.6-10.8) mg/dL AST 23 (5-34) Units/L ALT 19 (0-55) Units/L Alkaline Phosphatase 169 H (38-126) Units/L Albumin 1.7 L D (3.5-5.0) g/dL Calcium panel 07/20/17 07/21/17 Range/Units 10:54 04:53 Calcium 8.8 (8.6-10.8) mg/dL Albumin 1.7 L D (3.5-5.0) g/dL Pituitary panel 07/21/17 Range/Units 04:53 Sodium 133 L (136-145) mEq/L Potassium 3.3 L (3.5-4.5) mEq/L Chloride 102 (98-109) mEq/L Carbon Dioxide 21 (19-29) mEq/L BUN 11 (7-20) mg/dL Creatinine 0.80 (0.57-1.11) mg/dL Glucose 136 H (70-99) mg/dL Calcium 8.8 (8.6-10.8) mg/dL Adrenal panel 07/20/17 07/21/17 Range/Units 10:54 04:53 Sodium 133 L (136-145) mEq/L Potassium 3.3 L (3.5-4.5) mEq/L Chloride 102 (98-109) mEq/L Carbon Dioxide 21 (19-29) mEq/L BUN 11 (7-20) mg/dL Creatinine 0.80 (0.57-1.11) mg/dL Glucose 136 H (70-99) mg/dL Calcium 8.8 (8.6-10.8) mg/dL Total Bilirubin 0.4 (0.2-1.2) mg/dL AST 23 (5-34) Units/L ALT 19 (0-55) Units/L Alkaline Phosphatase 169 H (38-126) Units/L Albumin 1.7 L D (3.5-5.0) g/dL Consult Discharge Plan - Plan Referrals: Oleksandr Meier MD [Primary Care Provider] -
[2017-07-21] MEDS ORDERED: Magnesium Sulfate 2 GM in D5% in Water 100 ML IVPB ONE (12:07)
--- NOTE | 2017-07-21 12:22 | Internal Med Progress Note ---
Date of Encounter: 07/21/17 Time of Encounter: 12:18 - Assessment and plan (1) Sepsis Current Visit: Yes Status: Acute Assessment and plan: pt did meet sepsis criteria with fever T max 101.7, elevated WBC, source of inf as colitis Cont empirical abx Cipro and Flagyl tolerating clear liquid diet well WBC is still elevated..started having temp again.. tmax 100.9 ruled out C . Diff Qualifiers: Sepsis type: sepsis due to unspecified organism Qualified Code(s): A41.9 - Sepsis, unspecified organism (2) Colitis Current Visit: Yes Status: Acute Assessment and plan: Cont empirical abx Cipro and Flagyl tolerating clear liquid diet well Still has mild abdominal pain and her WBC is still elevated Surgery on board Since she started having fever spikes and WBC started going up, will sent for repeat CT of abd / Pelvis with IV and PO contrast (3) New onset a-fib Current Visit: Yes Status: Acute Assessment and plan: New onset A fib - could be due to sepsis with colitis as well stress with recent bladder surgery rate controlled Cont home med Metoprolol 50mg BID and Cardizem PO Reviewed 2 D Echo - Normal LVEF, indeterminate diastolic dysfunction Cardiology on board.. recommend to continue current care With her recent Stroke like symptoms --she is high risk cont Heparin gtt for now (4) Diastolic CHF Current Visit: Yes Status: Chronic Assessment and plan: Reviewed 2 D Echo not in exacerbation cont Metoprolol will use Lasix PRN Qualifiers: Qualified Code(s): I50.32 - Chronic diastolic (congestive) heart failure (5) HTN (hypertension), benign Current Visit: Yes Status: Acute Assessment and plan: stable..cont current meds (6) HLD (hyperlipidemia) Current Visit: Yes Status: Acute Assessment and plan: on statin Qualifiers: Hyperlipidemia type: mixed hyperlipidemia Qualified Code(s): E78.2 - Mixed hyperlipidemia - Subjective Interval history: She has had bladder mesh removed 3 weeks ago on by doctor in [place], [place] (mesh has been there for what was described as bladder sling surgery). Since then, she had never quite recovered and developed progressive 12-17 lbs weight loss, N/V - several times a day that improve with zofran. Also noted 3 x dark diarrhea last night. She noticed that her heart was racing/palpitating when she say her PCP today where EKG showed AFib. She was transferred to the [facility] where CT A/P showed LUQ stranding suspicious for colitis, there was concern whether this could be pancreatitis ? as well but lipase/amylase were not elevated (however she does fulfill 2/3 criteria). She describes epigastric region pain with extreme nausea. 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 She went to see PCP as f/u after recent surgery and mentioned about her Rt side weakness symptoms. PCP did an EKG which showed A fib and sent it over here. She is resting comfortably today. Denied any CP / SOB. Still has left side abdomen pain and nausea. No more diarrhea. had a soft / regular BM last night - Constitutional Vitals: Temp Pulse Resp BP Pulse Ox 100.9 F H 81 16 111/65 93 07/21/17 11:04 07/21/17 11:04 07/21/17 11:04 07/21/17 11:04 07/21/17 11:04 General appearance: Present: A&O X 3, no acute distress, answers questions appropriately - Head Head exam: Present: atraumatic, normal inspection - Respiratory Respiratory exam: Present: decreased breath sounds. Absent: rales, respiratory distress, rhonchi, wheezes - Cardiovascular Cardiovascular exam: Present: irregular rhythm, +S1, +S2. Absent: systolic murmur - GI/Abdominal GI/Abdominal exam: Present: normal bowel sounds, soft, tenderness (LUQ and LLQ) . Absent: distended, rebound, rigid - Extremities Exam Extremities exam: Absent: calf tenderness, pedal edema, tenderness - Neurological Exam Neurological exam: Present: alert, oriented X3 - Psychiatric Psychiatric exam: Present: normal affect, normal mood Internal Medicine: Result - Labs CBC & Chem 7: 07/21/17 04:53 07/21/17 04:53 Labs: Short CBC 07/21/17 Range/Units 04:53 WBC 21.2 H (4.3-11.1) K/mcL Hgb 9.7 L (11.5-15.4) g/dL Hct 29.6 L (35.3-44.9) % Plt Count 432 H (140-400) K/mcL Neutrophils # 16.2 H (1.6-8.9) K/mcL BMP 07/21/17 04:53 Sodium 133 L Potassium 3.3 L Chloride 102 Carbon Dioxide 21 BUN 11 Creatinine 0.80 Glucose 136 H Calcium 8.8 Consult Discharge Plan - Plan Referrals: Oleksandr Meier MD [Primary Care Provider] - 07/30/17 1:30 pm
[2017-07-21] MEDS ORDERED: Diltiazem CD (24hr) 180 MG CAPSULE PO SCH (15:00)
[2017-07-21] MEDS: Acetaminophen 325 MG TABLET PO PRN (17:28)
[2017-07-21] MEDS: Diltiazem CD (24hr) 180 MG CAPSULE PO SCH (17:28)
--- NOTE | 2017-07-21 17:38 | Event Note ---
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 Still has splenic flexure colitis. Small perfusion defect of the superior splenic pole which may represent small infracts. Changed abx to Zosyn and Bruna Talked to GI Dr. Rincon, he will see her in the morning Cont close monitoring Her abd pain seems to be better now comprae to when she came in. Cont heparin gtt
[2017-07-21] MEDS: Gabapentin 300 MG CAPSULE PO SCH (22:15)
[2017-07-21] MEDS: Mirtazapine 15 MG TABLET PO SCH (22:16)
[2017-07-22 06:16] LABS: Basophils # 0.1 K/mcL (0.0-0.2); Basophils % 0.3 %; Eosinophils # 0.2 K/mcL (0.0-0.6); Eosinophils % 0.9 %; Hematocrit 30.9 % (35.3-44.9); Hemoglobin 9.6 g/dL (11.5-15.4); Immature Granulocytes % 2.7 % (0-4); Lymphocytes # 1.9 K/mcL (0.6-4.6); Lymphocytes % 8.6 %; Mean Corpuscular HGB Conc 31.1 g/dL (31.6-35.5); Mean Corpuscular Hemoglobin 26.8 pg (28.0-33.3); Mean Corpuscular Volume 86.3 fL (83.0-100.0); Monocytes # 1.7 K/mcL (0.0-1.3); Monocytes % 7.6 %; Neutrophils # 17.8 K/mcL (1.6-8.9); Nucleated Red Blood Cells 0.4 /100 WBC (0); Platelet Count 467 K/mcL (140-400); Red Blood Count 3.58 M/mcL (3.82-4.97); Red Cell Distribution Width 14.7 % (11.5-14.5); Segmented Neutrophils % 79.9 %
[2017-07-22 06:35] LABS: BUN/Creatinine Ratio 14 (6-26); Blood Urea Nitrogen 11 mg/dL (7-20); Calcium 8.9 mg/dL (8.6-10.8); Carbon Dioxide 22 mEq/L (19-29); Chloride 102 mEq/L (98-109); Glucose 120 mg/dL (70-99); Lipase 47 Units/L (8-78); Magnesium 1.7 mg/dL (1.6-2.6); Osmolality,Calculated 277 (280-300); Potassium 3.9 mEq/L (3.5-4.5); Sodium 133 mEq/L (136-145); eGFR For African Americans > 60 (> 60); eGFR For Non-African Americans > 60 (> 60)
[2017-07-22] MEDS: Aspirin Enteric Coated 325 MG Tablet PO SCH (08:40)
[2017-07-22] MEDS: Heparin 25,000 UNIT/500 ML D5W 25,000 UNIT/500 ML MLS IVC SCH ×2 (09:04→22:34)
--- NOTE | 2017-07-22 10:06 | Internal Med Progress Note ---
Date of Encounter: 07/22/17 Time of Encounter: 09:30 - Assessment and plan (1) Pancreatitis Current Visit: Yes Status: Acute Assessment and plan: Patient has abdominal pain. Tender to palpation without rebound tenderness. Labs revealed persistent leukocytosis. Normal amylase and lipase. CT scan of the abdomen/pelvis reveals necrosis of the tail of the pancreas complicated by splenic infarcts. Patient has necrotizing pancreatitis. Unknown if this is infected. Patient will be placed on intravenous fluids. Liquid diet. Advance as tolerated. GI has been consulted. Will follow further evaluation and recommendations. Continue intravenous antibiotics of Zosyn and ciprofloxacin. If the patient does not respond adequately to conservative management with antibiotics, fluids and pain medications, she will require interventional radiology guided aspiration of the necrotic area for relief. Patient is high risk due to risk of sepsis, septic shock and further contributions from necrotizing pancreatitis. Qualifiers: Chronicity: acute Pancreatitis type: unspecified pancreatitis type Acute pancreatitis complication: uninfected necrosis Qualified Code(s): K85.91 - Acute pancreatitis with uninfected necrosis, unspecified (2) Sepsis Current Visit: Yes Status: Acute Assessment and plan: Patient continues to have tachycardia and elevated leukocytosis. This is related to her pancreatitis. Continue broad-spectrum antibiotic therapy for now. Qualifiers: Sepsis type: sepsis due to unspecified organism Qualified Code(s): A41.9 - Sepsis, unspecified organism (3) Afib Current Visit: Yes Status: Chronic Assessment and plan: New onset atrial fibrillation. Patient is adequately rate controlled. CHADS2-Vasc2 score is 2 (HTN & female sex) Continue Heparin drip. Eventual by mouth anticoagulation at discharge. Hold by mouth anticoagulation currently as the patient may require CT-guided drainage of her pancreatic necrosis and/or surgical intervention. Continue rate control medications. Qualifiers: Atrial fibrillation type: persistent Qualified Code(s): I48.1 - Persistent atrial fibrillation (4) HTN (hypertension), benign Current Visit: Yes Status: Chronic Assessment and plan: stable..cont current meds - Subjective Interval history: 52-year-old female presented to the emergency room due to abdominal pain. She was diagnosed to have colitis and pancreatitis based on initial imaging and was admitted for the same. She was placed on ciprofloxacin and Flagyl. However, during stay in the hospital, she continued to have leukocytosis with overnight fevers. Hence, she had a repeat CT scan of the abdomen/pelvis yesterday. This revealed necrotizing pancreatitis of the tail of the pancreas and splenic infarcts. Her antibiotics were changed to ciprofloxacin and Zosyn. Surgery is currently on board and monitoring the patient. Gastroenterology was consulted yesterday. The patient was also found to have new onset atrial fibrillation at the time of presentation to the hospital. She was placed in rate control her medications and started on heparin drip and cardiology was consulted. Cardiology has signed off as the patient's rate is adequately controlled. They recommended continued anticoagulation. Today, patient continues to report pain in the left side of the abdomen. She reports reduced appetite. She reports intermittent shortness of breath. She denies any cough, wheezing or palpitations. She denies any lightheadedness. She reports nausea but denies any diarrhea, conservation or vomiting. She reports fever and chills overnight. Patient states that she has not consumed alcohol in a few months. She denies any family history of pancreatitis. Denies any history of gallstones. - Constitutional Vitals: Temp Pulse Resp BP Pulse Ox 98.6 F 95 15 110/55 96 07/22/17 06:37 07/22/17 06:37 07/22/17 06:37 07/22/17 06:37 07/22/17 08:46 Exam: Gen.: Lying in bed. Mild to moderate distress. Chest: Clear to auscultation bilaterally. No adventitious sounds present. CVS: First and second heart sounds present. No murmurs, rubs or gallops. Irregularly irregular rate and rhythm. Rate controlled Abdomen: Soft, tender to palpation in the left upper and left lower quadrants without rebound tenderness, guarding or rigidity; nondistended. Bowel sounds present. Skin: No decubitus ulcers appreciated. Internal Medicine: Result - Labs CBC & Chem 7: 07/22/17 05:41 07/22/17 05:41 Labs: Short CBC 07/22/17 Range/Units 05:41 WBC 22.2 H (4.3-11.1) K/mcL Hgb 9.6 L (11.5-15.4) g/dL Hct 30.9 L (35.3-44.9) % Plt Count 467 H (140-400) K/mcL Neutrophils # 17.8 H (1.6-8.9) K/mcL BMP 07/22/17 05:41 Sodium 133 L Potassium 3.9 Chloride 102 Carbon Dioxide 22 BUN 11 Creatinine 0.76 Glucose 120 H Calcium 8.9 - Impressions Impressions Abdomen/Pelvis CT 07/21/17 14:40 IMPRESSION: 1. Stable focal pancreatic tail tip necrotizing pancreatitis with partially loculated pseudocyst development and extensive inflammation. Left hemiabdomen ascites. 2. Stable secondary gastritis, proximal enteritis, and splenic flexure colitis. No obstruction or perforation. 3. Multiple subtle peripheral small perfusion defects of the superior splenic pole which may represent small infarcts. There is no evidence of a hematoma. 4. Mild progression of pleural effusions and atelectasis more prominent on the left. 5. Mild progressive body wall edema. Stable partially loculated fluid in the anterior inferior pelvic wall. D/ / 07/21/2017 16:23:37 John Snowden MD / mylene Interpreting Provider: oJhn Snowden MD - Diagnostic Studies CT scan - abdomen Additional comments: Necrosis of the tail of the pancreas is seen. Wedge shaped infarcts in the spleen is seen. Continued colitis is seen. Consult Discharge Plan - Plan Referrals: Oleksandr Meier MD [Primary Care Provider] - 07/30/17 1:30 pm
--- NOTE | 2017-07-22 10:27 | General Surgery Progress Note ---
<Nighat Arrington - Last Filed: 07/22/17 10:27> Date of Encounter: 07/22/17 Time of Encounter: 09:15 - Assessment and Plan (1) Pancreatitis Current Visit: Yes Status: Acute CT 07/22/2017 demonstrated pancreatitis with pseudocyst Continue supportive care and discomfort management -Increase frequency of Zofran to Q4H, add promethazine Q6H for nausea/ vomiting -Will back diet down to clears and add Ensure clear as pt is intolerant of p.o. currently -Will check serial labs in the a.m. -Replace electrolytes per medicine PRN -Will consider repeat CT in the next 48 hours if no clinical improvement Qualifiers: Chronicity: acute Pancreatitis type: unspecified pancreatitis type Acute pancreatitis complication: uninfected necrosis Qualified Code(s): K85.91 - Acute pancreatitis with uninfected necrosis, unspecified (2) Colitis Current Visit: Yes Status: Acute vs pancreatitis. See above. Will continue to follow (3) PAF (paroxysmal atrial fibrillation) Current Visit: Yes Status: Acute New onset. Management per medicine. Noted heparin gtt for AC at this time. Rate is controlled although pt does report feelings of SOB and appears SOB at rest. (4) Hypokalemia Current Visit: Yes Status: Acute Management per medicine. Recommend replace electrolytes for bowel function PRN. Subjective Patient reports: no new complaints, still having pain, pain is less, voiding w/ o difficulty, flatus, bowel movement, nausea, shortness of breath Narrative: States nausea, but no vomiting. She is intolerant of liquids and is not able to hydrate with p.o. Objective Vital Signs - Last 8 Hours Temp Pulse Resp BP Pulse Ox 07/22/17 08:46 96 07/22/17 06:37 98.6 F 95 15 110/55 96 07/22/17 04:38 100.1 F H 87 16 129/62 93 Intake and Output 07/21/17 07/22/17 07/22/17 23:59 07:59 15:59 Intake Total 700 / 700 0 / 0 500 / 500 Output Total 1000 / 1000 500 / 500 Balance -300 / -300 -500 / -500 500 / 500 Intake: IV Fluids 700 / 700 500 / 500 Heparin 25,000 UNIT/500 500 / 500 500 / 500 ML D5W 25,000 unit In 500 ml @ 14 UNIT/KG/HR 23.1 mls/hr IVC .[id number] [facility] Rx#:[id number] Cipro Premix 400 MG/200 200 / 200 ML 400 mg In 200 ml @ 200 mls/hr IVPB Q12HR [facility] Rx #:[id number] Oral 0 / 0 0 / 0 Output: Urine 1000 / 1000 500 / 500 Other: Weight 88.6 kg 88.6 kg Patient Weight 07/22/17 23:59 Weight 88.6 kg - General physical appearance no distress, moderate pain, other (appears SOB at rest) - Eyes normal ocular movement - ENT dry mucosa, atraumatic, normocephalic - Neck Neck exam: trachea midline - Respiratory other (Decreased bibasilar nreath sounds) - Cardiovascular Cardiovascular exam: Present: irregular rhythm (Irregularly irregular), no murmurs/rubs/gallops - Abdomen Abdomen: Present: bowel sounds present, soft, tender - Integumentary no rash - Neurologic CN 2-12 grossly intact, normal coordination - Musculoskeletal normal posture - Psychiatric oriented to time, oriented to person, oriented to place, speech is normal, memory intact - Labs 07/22/17 05:41 07/22/17 05:41 Diabetes panel 07/22/17 Range/Units 05:41 Sodium 133 L (136-145) mEq/L Potassium 3.9 (3.5-4.5) mEq/L Chloride 102 (98-109) mEq/L Carbon Dioxide 22 (19-29) mEq/L BUN 11 (7-20) mg/dL Creatinine 0.76 (0.57-1.11) mg/dL Glucose 120 H (70-99) mg/dL Calcium 8.9 (8.6-10.8) mg/dL Calcium panel 07/22/17 Range/Units 05:41 Calcium 8.9 (8.6-10.8) mg/dL Pituitary panel 07/22/17 Range/Units 05:41 Sodium 133 L (136-145) mEq/L Potassium 3.9 (3.5-4.5) mEq/L Chloride 102 (98-109) mEq/L Carbon Dioxide 22 (19-29) mEq/L BUN 11 (7-20) mg/dL Creatinine 0.76 (0.57-1.11) mg/dL Glucose 120 H (70-99) mg/dL Calcium 8.9 (8.6-10.8) mg/dL Adrenal panel 07/22/17 Range/Units 05:41 Sodium 133 L (136-145) mEq/L Potassium 3.9 (3.5-4.5) mEq/L Chloride 102 (98-109) mEq/L Carbon Dioxide 22 (19-29) mEq/L BUN 11 (7-20) mg/dL Creatinine 0.76 (0.57-1.11) mg/dL Glucose 120 H (70-99) mg/dL Calcium 8.9 (8.6-10.8) mg/dL Consult Discharge Plan - Plan Referrals: Oleksandr Meier MD [Primary Care Provider] - 07/30/17 1:30 pm <Jeovany Oconnell - Last Filed: 07/23/17 08:06> Date of Encounter: 07/22/17 - Assessment and Plan (1) Colitis Current Visit: Yes Status: Acute Objective Vital Signs - Last 8 Hours Temp Pulse Resp BP Pulse Ox 07/23/17 06:43 99.4 F 77 16 106/63 93 07/23/17 05:28 18 07/23/17 04:09 99.1 F 58 18 113/66 95 Intake and Output 07/22/17 07/23/17 07/23/17 23:59 07:59 15:59 Intake Total 1925 / 1925 1105 / 1105 Balance 1925 / 1925 1105 / 1105 Intake: IV Fluids 1805 / 1805 1105 / 1105 Heparin 25,000 UNIT/500 500 / 500 ML D5W 25,000 unit In 500 ml @ 14 UNIT/KG/HR 23.1 mls/hr IVC .[id number] [facility] Rx#:[id number] KCl 10 MEQ In 0.9 % 1005 / 1005 1005 / 1005 Sodium Chloride 1,000 ML @ 125 mls/hr IVC .[id number] [facility] Rx#:[id number] Cipro Premix 400 MG/200 200 / 200 ML 400 mg In 200 ml @ 200 mls/hr IVPB Q12HR [facility] Rx #:[id number] Zosyn 3.375 GM In 100 / 100 100 / 100 Dextrose 5% (Minibag+) 100 ML 100 ML @ 25 mls/hr IVPB Q8H [facility] Rx#: [id number] Oral 120 / 120 0 / 0 Other: Meal Dinner Percent of Meal Consumed 10% # Voids 1 1 Weight 84.6 kg Patient Weight 07/23/17 23:59 Weight 84.6 kg - Labs 07/23/17 04:00 07/23/17 04:00 Diabetes panel 07/22/17 07/23/17 Range/Units 11:15 04:00 Sodium 138 (136-145) mEq/L Potassium 4.8 H (3.5-4.5) mEq/L Chloride 109 (98-109) mEq/L Carbon Dioxide 18 L (19-29) mEq/L BUN 10 (7-20) mg/dL Creatinine 0.77 (0.57-1.11) mg/dL Glucose 116 H (70-99) mg/dL Calcium 8.7 (8.6-10.8) mg/dL AST 36 H (5-34) Units/L ALT 24 (0-55) Units/L Alkaline Phosphatase 191 H (38-126) Units/L Albumin 1.7 L (3.5-5.0) g/dL Triglycerides 94 (< 150) mg/dL HDL Cholesterol 16 L (40-59) mg/dL Calcium panel 07/23/17 Range/Units 04:00 Calcium 8.7 (8.6-10.8) mg/dL Albumin 1.7 L (3.5-5.0) g/dL Pituitary panel 07/23/17 Range/Units 04:00 Sodium 138 (136-145) mEq/L Potassium 4.8 H (3.5-4.5) mEq/L Chloride 109 (98-109) mEq/L Carbon Dioxide 18 L (19-29) mEq/L BUN 10 (7-20) mg/dL Creatinine 0.77 (0.57-1.11) mg/dL Glucose 116 H (70-99) mg/dL Calcium 8.7 (8.6-10.8) mg/dL Adrenal panel 07/23/17 Range/Units 04:00 Sodium 138 (136-145) mEq/L Potassium 4.8 H (3.5-4.5) mEq/L Chloride 109 (98-109) mEq/L Carbon Dioxide 18 L (19-29) mEq/L BUN 10 (7-20) mg/dL Creatinine 0.77 (0.57-1.11) mg/dL Glucose 116 H (70-99) mg/dL Calcium 8.7 (8.6-10.8) mg/dL Total Bilirubin 0.8 D (0.2-1.2) mg/dL AST 36 H (5-34) Units/L ALT 24 (0-55) Units/L Alkaline Phosphatase 191 H (38-126) Units/L Albumin 1.7 L (3.5-5.0) g/dL - Attending Attestation I have personally performed a face to face evaluation on this patient. I have reviewed and agree with the care plan. History and Exam by me shows: The patient is seen and evaluated on morning rounds. The clinical care plan was discussed with the clinical nurse practitioner. We will advance tube feedings today. She continues to have some distention. The lymphatic drainage right upper quadrant is continuing however this is decreasing in volume. We will continue supportive care. Jeovany Oconnell MD FACS
[2017-07-22] MEDS ORDERED: *HR* Promethazine 25 MG/ML VIAL IVP PRN (10:34)
[2017-07-22 11:49] LABS: Chol/HDL Ratio 4.4 (0-4.9)
[2017-07-22] MEDS: Piperacillin/Tazobactam 3.375 GM in D5% in Water (Mini-Bag+) 100 ML IVPB SCH ×2 (12:24→20:39)
[2017-07-22] MEDS: Ondansetron 4 MG/2 ML VIAL IVP SCH ×4 (15:51→23:57)
[2017-07-22] MEDS: Diltiazem CD (24hr) 180 MG CAPSULE PO SCH (15:55)
[2017-07-22] MEDS: Acetaminophen 325 MG TABLET PO PRN ×2 (15:59→23:57)
[2017-07-22] MEDS: Mirtazapine 15 MG TABLET PO SCH (23:53)
[2017-07-22] MEDS: Gabapentin 300 MG CAPSULE PO SCH (23:53)
[2017-07-23] MEDS: Piperacillin/Tazobactam 3.375 GM in D5% in Water (Mini-Bag+) 100 ML IVPB SCH ×3 (03:01→20:27)
[2017-07-23 04:57] LABS: Basophils # 0.1 K/mcL (0.0-0.2); Basophils % 0.2 %; Eosinophils # 0.3 K/mcL (0.0-0.6); Eosinophils % 1.4 %; Hematocrit 31.1 % (35.3-44.9); Hemoglobin 9.8 g/dL (11.5-15.4); Immature Granulocytes % 2.2 % (0-4); Lymphocytes # 2.8 K/mcL (0.6-4.6); Lymphocytes % 13.3 %; Mean Corpuscular HGB Conc 31.5 g/dL (31.6-35.5); Mean Corpuscular Hemoglobin 27.3 pg (28.0-33.3); Mean Corpuscular Volume 86.6 fL (83.0-100.0); Mean Platelet Volume 10.9 fL (9.4-12.4); Monocytes # 1.5 K/mcL (0.0-1.3); Monocytes % 6.8 %; Neutrophils # 16.2 K/mcL (1.6-8.9); Nucleated Red Blood Cells 0.3 /100 WBC (0); Platelet Count 361 K/mcL (140-400); Red Blood Count 3.59 M/mcL (3.82-4.97); Red Cell Distribution Width 14.9 % (11.5-14.5); Segmented Neutrophils % 76.1 %
[2017-07-23 05:11] LABS: Alanine Aminotransferase 24 Units/L (0-55); Albumin 1.7 g/dL (3.5-5.0); Albumin/Globulin Ratio 0.4 (1.1-2.2); Alkaline Phosphatase 191 Units/L (38-126); Amylase 57 Units/L (25-125); Aspartate Amino Transferase 36 Units/L (5-34); BUN/Creatinine Ratio 13 (6-26); Bilirubin,Total 0.8 mg/dL (0.2-1.2); Blood Urea Nitrogen 10 mg/dL (7-20); Calcium 8.7 mg/dL (8.6-10.8); Carbon Dioxide 18 mEq/L (19-29); Chloride 109 mEq/L (98-109); Globulin 3.8 g/dL (2.4-3.5); Glucose 116 mg/dL (70-99); Lipase 46 Units/L (8-78); Osmolality,Calculated 286 (280-300); Potassium 4.8 mEq/L (3.5-4.5); Sodium 138 mEq/L (136-145); Total Protein 5.5 g/dL (6.0-8.3); eGFR For African Americans > 60 (> 60); eGFR For Non-African Americans > 60 (> 60)
[2017-07-23] MEDS: *HR* HYDROmorphone (PF) 1 MG/ML SYRINGE IVP PRN ×3 (05:20→20:27)
[2017-07-23] MEDS: Ondansetron 4 MG/2 ML VIAL IVP SCH ×2 (05:21→09:31)
[2017-07-23] MEDS ORDERED: Aspirin Enteric Coated 81 MG Tablet PO SCH (09:00)
--- NOTE | 2017-07-23 09:22 | Gastroenterology Consult Note ---
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 No obstruction or perforation noted. There was mild progression of pleural effusions and atactasis. General surgery consulted, recommended conservative management with no surgical intervention at this time. Patient currently on clear liquid diet and Ensure supplement. BISAP score: 2 (>2 SIRS criteria, pleural effusion) lipid panel within normal limits. Plan: continue with conservative management at this time. NPO diet, bowel rest. Patient will need placement of duodenal feeding tube, nutrition consult. Increased fluids to 200cc/hr. will follow along. Qualifiers: Chronicity: acute Pancreatitis type: unspecified pancreatitis type Acute pancreatitis complication: uninfected necrosis Qualified Code(s): K85.91 - Acute pancreatitis with uninfected necrosis, unspecified (2) Sepsis Current Visit: Yes Status: Acute Assessment and plan: Blood cultures show no growth to date. Patient met sepsis criteria with fever, tachycardia, leukocytosis, Lactic acid remains normal source of infection likely secondary to colitis/pancreatitis. Patient was initially on Cipro/flagyl that has now been switched to zosyn and cipro on 07/21 WBC continues to rise. Plan as above. Qualifiers: Sepsis type: sepsis due to unspecified organism Qualified Code(s): A41.9 - Sepsis, unspecified organism (3) New onset a-fib Current Visit: Yes Status: Acute Assessment and plan: etiology likely secondary to sepsis. management per primary team. - Time Spent With Patient Total time spent is greater than 50% in coordination of care (as documented) at patient's floor/unit and/or counseling patient: GI History of Present Illness - Data of Consult Consult date: 07/22/17 Requesting Physician: Torey Thompson MD - Consult Narrative History of present illness: Ms. Downey is a 52 year old female with PMHx of HLD, HTN, depression, history of seizures, CKD, History of left nephrectomy. Patient arrived to [facility] on for Afib RVR, colitis. Patient recently had surgery three weeks ago and had bladder sling removal. Since then, she has had progressive weight loss of about 15 pounds, nauesa, vomiting, and diarrhea. Patient also complained of palpitations at that time as well. On day of admission, she had seen her PCP who got EKG and was found to be in Afib. Patient is being treated for sepsis secondary to necrotizing pancreatitis with cipro and flagyl. She is being treated for Afib with heparin gtt and remains rate controlled. General surgery was consulted, and they had recommended no surgical intervention at this time, and continue with conservative treatment. Patient is currently on a full liquid diet and tolerating well. ROS: patient admits to nausea. she has not had any episodes of vomiting today. has 2-3 episodes of diarrhea daily. Her C.Diff screening was negative. SHe does admit to subjective fevers and chills, and diaphoresis. patient denies blood in her stool. she had one episode of blood in her urine last friday but denies having any further episodes since. she also admits to some shortness of breath. Past Med Surg Social Fam HX - Past Medical History Medical history: atrial fibrillation, hyperlipidemia, hypertension, renal disease Psychiatric history: anxiety - Past Surgical History Surgical History: hysterectomy, other - Social History Smoking Status: Former smoker Smokeless Tobacco Status: No Alcohol use: none Drug use: none - Family History Father Age: 70 Living Status: Still Living Hx Family Cardiac Disorders: Yes Hx Family Respiratory Disorders: Yes (COPD) Hx Family Endocrine Disorder: Yes (DM type 2) - Gastrointestinal Gastrointestinal: Present: as per HPI, abdominal pain, bloating, diarrhea, nausea, vomiting. Absent: hematochezia, melena - Constitutional Constitutional: as per HPI - EENT Eyes: as per HPI - Cardiovascular Cardiovascular ROS: Present: as per HPI - Respiratory Respiratory IM: Present: as per HPI - Neurological ROS Neurological GI: Present: as per HPI - Hematologic/Lymphatic Hematologic/Lymphatic pediatric: Present: as per HPI - Musculoskeletal Musculoskeletal ROS GI: Present: as per HPI - Constitutional Vitals: Temp Pulse Resp BP Pulse Ox 99.4 F 77 16 106/63 93 07/23/17 06:43 07/23/17 06:43 07/23/17 06:43 07/23/17 06:43 07/23/17 06:43 General appearance: Present: A&O X 3, pleasant, no acute distress, answers questions appropriately Exam: diaphoretic. - Head Head exam: Present: atraumatic, normocephalic - Neck Neck exam general surgery: Present: supple, trachea midline - Respiratory Additional comments: bilateral lower lobe rales present. - Cardiovascular Cardiovascular exam: Present: irregular rhythm, +S1, +S2 - GI/Abdominal GI/Abdominal exam: Present: soft, tenderness, no peritoneal signs Additional comments: tenderness mainly in epigastric and left abdominal area. no guarding present upon exam. no peritoneal signs present. - Extremities Exam Extremities exam: Absent: cyanotic, pedal edema - Other Additional findings: suprapubic scar present from previous surgery that does not appear erythematous or infected. tenderness present in this area as well. Results - Labs CBC & Chem 7: 07/23/17 04:00 07/23/17 04:00 Labs: Last Result Calcium 8.7 mg/dL (8.6-10.8) 07/23/17 04:00 Triglycerides 94 mg/dL (< 150) 07/22/17 11:15 Entire Visit Hgb 9.8 g/dL (11.5-15.4) L 07/23/17 04:00 Hct 31.1 % (35.3-44.9) L 07/23/17 04:00 Total Bilirubin 0.8 mg/dL (0.2-1.2) D 07/23/17 04:00 AST 36 Units/L (5-34) H 07/23/17 04:00 ALT 24 Units/L (0-55) 07/23/17 04:00 Amylase 57 Units/L (25-125) 07/23/17 04:00 Lipase 46 Units/L (8-78) 07/23/17 04:00 Consult Discharge Plan - Plan Referrals: Oleksandr Meier MD [Primary Care Provider] - 07/30/17 1:30 pm <Nori Rincon - Last Filed: 07/23/17 18:28> Date of Encounter: 07/23/17 Time of Encounter: 13:00 - Time Spent With Patient Total time spent is greater than 50% in coordination of care (as documented) at patient's floor/unit and/or counseling patient: GI History of Present Illness - Data of Consult Requesting Physician: Torey Thompson MD - Consult Narrative History of present illness: Ms. Downey is a 52 year old female - Constitutional Vitals: Temp Pulse Resp BP Pulse Ox 98.6 F 67 16 111/68 96 07/23/17 15:22 07/23/17 15:22 07/23/17 15:51 07/23/17 15:22 07/23/17 15:51 Results - Labs CBC & Chem 7: 07/23/17 04:00 07/23/17 04:00 Labs: Last Result Calcium 8.7 mg/dL (8.6-10.8) 07/23/17 04:00 Triglycerides 94 mg/dL (< 150) 07/22/17 11:15 Entire Visit Hgb 9.8 g/dL (11.5-15.4) L 07/23/17 04:00 Hct 31.1 % (35.3-44.9) L 07/23/17 04:00 Total Bilirubin 0.8 mg/dL (0.2-1.2) D 07/23/17 04:00 AST 36 Units/L (5-34) H 07/23/17 04:00 ALT 24 Units/L (0-55) 07/23/17 04:00 Amylase 57 Units/L (25-125) 07/23/17 04:00 Lipase 46 Units/L (8-78) 07/23/17 04:00 - Impressions Impressions KUB X-Ray 07/23/17 14:15 IMPRESSION: Enteric feeding tube in a post pyloric position. D/ / Michele Joiner MD / Michele Joiner MD Interpreting Provider: Michele Joiner MD X-Ray 07/23/17 15:12 IMPRESSION: Tip of the Dobhoff tube in the distal duodenum. D/ / Sam Cutler MD / Sam Cutler MD Interpreting Provider: aSm Cutler MD - Attending Attestation I examined this patient and my medical decision-making was reviewed with the Resident Physician. I agree with the documented findings, disposition and treatment plan as described except to the extent set forth below. Patient with the severe pancreatitis in the region of the tail of the pancreas along with severe phlegmon. There is no obvious fluid collection other than severe phlegmon. Recommendation nothing by mouth, nasoduodenal feeds, IV fluids
[2017-07-23] MEDS ORDERED: Ondansetron 4 MG/2 ML VIAL IVP PRN (11:14)
[2017-07-23] MEDS ORDERED: 0.9 % Sodium Chloride 1,000 ML IVC SCH (11:15)
[2017-07-23] MEDS: Acetaminophen 325 MG TABLET PO PRN ×2 (12:20→20:26)
--- NOTE | 2017-07-23 12:20 | Internal Med Progress Note ---
Date of Encounter: 07/23/17 Time of Encounter: 11:00 - Assessment and plan (1) Pancreatitis Current Visit: Yes Status: Acute Assessment and plan: Patient has necrotizing pancreatitis. Unknown if this is infected. Continue clear liquids. Case DW GI. Continue intravenous antibiotics of Zosyn. If the patient does not respond adequately to conservative management with antibiotics, fluids and pain medications, she may require interventional radiology guided aspiration of the necrotic area for relief vs EGD guided aspiration by GI. Will follow up GI recommendations regarding the same. Etiology is not related to ETOH, gall stones or hypertriglyceridemia. IgG subclass fractionation has been received and pending to evaluate for autoimmune pancreatitis. Patient is high risk due to risk of sepsis, septic shock and further contributions from necrotizing pancreatitis. Qualifiers: Chronicity: acute Pancreatitis type: unspecified pancreatitis type Acute pancreatitis complication: uninfected necrosis Qualified Code(s): K85.91 - Acute pancreatitis with uninfected necrosis, unspecified (2) Sepsis Current Visit: Yes Status: Acute Assessment and plan: Patient continues to have tachycardia and elevated leukocytosis. This is related to her pancreatitis. Continue zosyn for now. Qualifiers: Sepsis type: sepsis due to unspecified organism Qualified Code(s): A41.9 - Sepsis, unspecified organism (3) Afib Current Visit: Yes Status: Chronic Assessment and plan: New onset atrial fibrillation. Patient is adequately rate controlled. CHADS2-Vasc2 score is 2 (HTN & female sex) Continue Heparin drip. Eventual by mouth anticoagulation at discharge. Hold by mouth anticoagulation currently as the patient may require CT-guided drainage of her pancreatic necrosis and/or surgical intervention. Continue rate control medications. Qualifiers: Atrial fibrillation type: persistent Qualified Code(s): I48.1 - Persistent atrial fibrillation (4) HTN (hypertension), benign Current Visit: Yes Status: Chronic Assessment and plan: stable..cont current meds - Subjective Interval history: 52-year-old female presented to the emergency room due to abdominal pain. She was diagnosed to have colitis and pancreatitis based on initial imaging and was admitted for the same. She was placed on ciprofloxacin and Flagyl. However, during stay in the hospital, she continued to have leukocytosis with overnight fevers. Hence, she had a repeat CT scan of the abdomen/pelvis yesterday. This revealed necrotizing pancreatitis of the tail of the pancreas and splenic infarcts. Her antibiotics were changed to ciprofloxacin and Zosyn. Surgery is currently on board and monitoring the patient. Gastroenterology was consulted yesterday. The patient was also found to have new onset atrial fibrillation at the time of presentation to the hospital. She was placed in rate control her medications and started on heparin drip and cardiology was consulted. Cardiology has signed off as the patient's rate is adequately controlled. They recommended continued anticoagulation. She is being evaluated by GI today. Continues to reports abdominal pain. Reports nausea but not vomiting. No CP. Reports some shortness of breath with exertion. - Constitutional Vitals: Temp Pulse Resp BP Pulse Ox 101.6 F H 78 16 124/60 97 07/23/17 11:53 07/23/17 11:20 07/23/17 11:20 07/23/17 11:20 07/23/17 11:20 Exam: Gen.: Lying in bed. Mild to moderate distress. Chest: Clear to auscultation bilaterally. No adventitious sounds present. CVS: First and second heart sounds present. No murmurs, rubs or gallops. Abdomen: Soft, tenderness to palpation in the left upper and lower quadrants without any rebound tenderness, guarding or rigidity; obese. Bowel sounds present. Internal Medicine: Result - Labs CBC & Chem 7: 07/23/17 04:00 07/23/17 04:00 Labs: Short CBC 07/23/17 Range/Units 04:00 WBC 21.3 H (4.3-11.1) K/mcL Hgb 9.8 L (11.5-15.4) g/dL Hct 31.1 L (35.3-44.9) % Plt Count 361 (140-400) K/mcL Neutrophils # 16.2 H (1.6-8.9) K/mcL BMP 07/23/17 04:00 Sodium 138 Potassium 4.8 H Chloride 109 Carbon Dioxide 18 L BUN 10 Creatinine 0.77 Glucose 116 H Calcium 8.7 Liver Function 07/23/17 Range/Units 04:00 Total Bilirubin 0.8 D (0.2-1.2) mg/dL AST 36 H (5-34) Units/L ALT 24 (0-55) Units/L Alkaline Phosphatase 191 H (38-126) Units/L Albumin 1.7 L (3.5-5.0) g/dL Consult Discharge Plan - Plan Referrals: Oleksandr Meier MD [Primary Care Provider] - 07/30/17 1:30 pm
[2017-07-23] MEDS: Sennosides/Docusate Sodium TABLET PO SCH ×2 (12:29→20:26)
--- NOTE | 2017-07-23 12:30 | General Surgery Progress Note ---
<Lisa Palomino A - Last Filed: 07/23/17 12:38> Date of Encounter: 07/23/17 Time of Encounter: 11:30 - Assessment and Plan (1) Pancreatitis Current Visit: Yes Status: Acute May continue full liquid diet as tolerated Supportive care/pain control Serial abdominal exams IV antibiotics- Zosyn Amylase/Lipase within normal limits PPI therapy daily IS every 1 hour while awake Surgery will continue to follow and assess progress Consider CT of abdomen/pelvis in the next 24 hours Qualifiers: Chronicity: acute Pancreatitis type: unspecified pancreatitis type Acute pancreatitis complication: uninfected necrosis Qualified Code(s): K85.91 - Acute pancreatitis with uninfected necrosis, unspecified (2) New onset a-fib Current Visit: Yes Status: Acute Currently on heparin gtt for anticoagulation Cardizem- rate controlled Management per medicine service (3) DVT prophylaxis Current Visit: Yes Status: Acute Ambulate hallways TID with assistance EPCDs to bilateral lower extremities for DVT prophyaxis Heparin gtt for new onset atrial fibrillation Subjective Patient reports: no new complaints, feels better, still having pain, pain is less, voiding w/o difficulty, flatus, nausea (poor appetite), fever (Tmax 101.6) Objective Vital Signs - Last 8 Hours Temp Pulse Resp BP Pulse Ox 07/23/17 11:53 101.6 F H 07/23/17 11:20 100.4 F H 78 16 124/60 97 07/23/17 06:43 99.4 F 77 16 106/63 93 07/23/17 05:28 18 Intake and Output 07/22/17 07/23/17 07/23/17 23:59 07:59 15:59 Intake Total 1925 / 1925 1205 / 1205 Balance 1925 / 1925 1205 / 1205 Intake: IV Fluids 1805 / 1805 1205 / 1205 Heparin 25,000 UNIT/500 500 / 500 ML D5W 25,000 unit In 500 ml @ 14 UNIT/KG/HR 23.1 mls/hr IVC .[id number] [facility] Rx#:[id number] KCl 10 MEQ In 0.9 % 1005 / 1005 1005 / 1005 Sodium Chloride 1,000 ML @ 125 mls/hr IVC .[id number] [facility] Rx#:[id number] Cipro Premix 400 MG/200 200 / 200 ML 400 mg In 200 ml @ 200 mls/hr IVPB Q12HR [facility] Rx #:[id number] Zosyn 3.375 GM In 100 / 100 200 / 200 Dextrose 5% (Minibag+) 100 ML 100 ML @ 25 mls/hr IVPB Q8H [facility] Rx#: [id number] Oral 120 / 120 0 / 0 Other: Meal Dinner Percent of Meal Consumed 10% # Voids 1 1 Weight 84.6 kg Patient Weight 07/23/17 23:59 Weight 84.6 kg - General physical appearance well developed, well nourished, no distress - Eyes normal ocular movement - ENT normal mucosa, atraumatic, normocephalic - Neck Neck exam: trachea midline - Respiratory normal respiratory effort, clear to auscultation, other (diminished bibasilar bases) - Cardiovascular Cardiovascular exam: Present: RRR - Abdomen Abdomen: Present: bowel sounds present, soft, tender (improved) Abdominal Tenderness: epigastic - Integumentary no rash, no growths, no abnormal pigmentation - Neurologic CN 2-12 grossly intact - Psychiatric oriented to time, oriented to person, oriented to place, speech is normal, memory intact - Labs 07/23/17 04:00 07/23/17 04:00 Diabetes panel 07/23/17 Range/Units 04:00 Sodium 138 (136-145) mEq/L Potassium 4.8 H (3.5-4.5) mEq/L Chloride 109 (98-109) mEq/L Carbon Dioxide 18 L (19-29) mEq/L BUN 10 (7-20) mg/dL Creatinine 0.77 (0.57-1.11) mg/dL Glucose 116 H (70-99) mg/dL Calcium 8.7 (8.6-10.8) mg/dL AST 36 H (5-34) Units/L ALT 24 (0-55) Units/L Alkaline Phosphatase 191 H (38-126) Units/L Albumin 1.7 L (3.5-5.0) g/dL Calcium panel 07/23/17 Range/Units 04:00 Calcium 8.7 (8.6-10.8) mg/dL Albumin 1.7 L (3.5-5.0) g/dL Pituitary panel 07/23/17 Range/Units 04:00 Sodium 138 (136-145) mEq/L Potassium 4.8 H (3.5-4.5) mEq/L Chloride 109 (98-109) mEq/L Carbon Dioxide 18 L (19-29) mEq/L BUN 10 (7-20) mg/dL Creatinine 0.77 (0.57-1.11) mg/dL Glucose 116 H (70-99) mg/dL Calcium 8.7 (8.6-10.8) mg/dL Adrenal panel 07/23/17 Range/Units 04:00 Sodium 138 (136-145) mEq/L Potassium 4.8 H (3.5-4.5) mEq/L Chloride 109 (98-109) mEq/L Carbon Dioxide 18 L (19-29) mEq/L BUN 10 (7-20) mg/dL Creatinine 0.77 (0.57-1.11) mg/dL Glucose 116 H (70-99) mg/dL Calcium 8.7 (8.6-10.8) mg/dL Total Bilirubin 0.8 D (0.2-1.2) mg/dL AST 36 H (5-34) Units/L ALT 24 (0-55) Units/L Alkaline Phosphatase 191 H (38-126) Units/L Albumin 1.7 L (3.5-5.0) g/dL Consult Discharge Plan - Plan Referrals: Oleksandr Meier MD [Primary Care Provider] - 07/30/17 1:30 pm - Attending Attestation For this encounter, I have reviewed the [employer] or PA documentation, treatment plan, and medical decision making; and I have had face to face time with this patient. <Jeovany Oconnell - Last Filed: 07/23/17 18:17> Date of Encounter: 07/23/17 - Assessment and Plan (1) Colitis Current Visit: Yes Status: Acute Objective Vital Signs - Last 8 Hours Temp Pulse Resp BP Pulse Ox 07/23/17 15:22 98.6 F 67 16 111/68 96 07/23/17 11:53 101.6 F H 07/23/17 11:20 100.4 F H 78 16 124/60 97 Intake and Output 07/23/17 07/23/17 07/23/17 07:59 15:59 23:59 Intake Total 1205 / 1205 800 / 800 Balance 1205 / 1205 800 / 800 Intake: IV Fluids 1205 / 1205 800 / 800 Heparin 25,000 UNIT/500 500 / 500 ML D5W 25,000 unit In 500 ml @ 14 UNIT/KG/HR 23.1 mls/hr IVC .[id number] [facility] Rx#:[id number] KCl 10 MEQ In 0.9 % 1005 / 1005 Sodium Chloride 1,000 ML @ 125 mls/hr IVC .[id number] [facility] Rx#:[id number] Cipro Premix 400 MG/200 200 / 200 ML 400 mg In 200 ml @ 200 mls/hr IVPB Q12HR [facility] Rx #:[id number] Zosyn 3.375 GM In 200 / 200 100 / 100 Dextrose 5% (Minibag+) 100 ML 100 ML @ 25 mls/hr IVPB Q8H [facility] Rx#: [id number] Oral 0 / 0 Other: # Voids 1 Weight 84.6 kg Patient Weight 07/23/17 23:59 Weight 84.6 kg - Labs 07/23/17 04:00 07/23/17 04:00 Diabetes panel 07/23/17 Range/Units 04:00 Sodium 138 (136-145) mEq/L Potassium 4.8 H (3.5-4.5) mEq/L Chloride 109 (98-109) mEq/L Carbon Dioxide 18 L (19-29) mEq/L BUN 10 (7-20) mg/dL Creatinine 0.77 (0.57-1.11) mg/dL Glucose 116 H (70-99) mg/dL Calcium 8.7 (8.6-10.8) mg/dL AST 36 H (5-34) Units/L ALT 24 (0-55) Units/L Alkaline Phosphatase 191 H (38-126) Units/L Albumin 1.7 L (3.5-5.0) g/dL Calcium panel 07/23/17 Range/Units 04:00 Calcium 8.7 (8.6-10.8) mg/dL Albumin 1.7 L (3.5-5.0) g/dL Pituitary panel 07/23/17 Range/Units 04:00 Sodium 138 (136-145) mEq/L Potassium 4.8 H (3.5-4.5) mEq/L Chloride 109 (98-109) mEq/L Carbon Dioxide 18 L (19-29) mEq/L BUN 10 (7-20) mg/dL Creatinine 0.77 (0.57-1.11) mg/dL Glucose 116 H (70-99) mg/dL Calcium 8.7 (8.6-10.8) mg/dL Adrenal panel 07/23/17 Range/Units 04:00 Sodium 138 (136-145) mEq/L Potassium 4.8 H (3.5-4.5) mEq/L Chloride 109 (98-109) mEq/L Carbon Dioxide 18 L (19-29) mEq/L BUN 10 (7-20) mg/dL Creatinine 0.77 (0.57-1.11) mg/dL Glucose 116 H (70-99) mg/dL Calcium 8.7 (8.6-10.8) mg/dL Total Bilirubin 0.8 D (0.2-1.2) mg/dL AST 36 H (5-34) Units/L ALT 24 (0-55) Units/L Alkaline Phosphatase 191 H (38-126) Units/L Albumin 1.7 L (3.5-5.0) g/dL - Attending Attestation The patient is seen and evaluated on morning rounds and discussed with the clinical nurse practitioner. She continues to have febrile episodes and the developing dry and pancreatic pseudocyst is no indication of the severity of her pancreatic necrosis. We will watch closely for signs and symptoms of development of pancreatic abscess. She may require transfer to a tertiary care facility for necrosectomy of the pancreas if she clinically deteriorates. Jeovany Oconnell MD FACS
[2017-07-23] MEDS: Heparin 25,000 UNIT/500 ML D5W 25,000 UNIT/500 ML MLS IVC SCH (12:55)
[2017-07-23] MEDS: *HR* Heparin 5,000 UNIT/ML VIAL IVP PRN (12:56)
[2017-07-23] MEDS ORDERED: Chloraseptic Spray 177 ML BOTTLE MM PRN (14:42)
[2017-07-23] MEDS: Ipratropium/Albuterol Neb 3 ML IH SCH ×3 (15:53→23:43)
[2017-07-23] MEDS: 0.9 % Sodium Chloride 1,000 ML IVC SCH (18:23)
[2017-07-23] MEDS: Gabapentin 300 MG CAPSULE PO SCH (20:18)
[2017-07-23] MEDS: Mirtazapine 15 MG TABLET PO SCH (20:26)
[2017-07-24] MEDS: 0.9 % Sodium Chloride 1,000 ML IVC SCH ×2 (01:03→05:57)
[2017-07-24 01:27] LABS: Hematocrit 29.8 % (35.3-44.9); Hemoglobin 9.1 g/dL (11.5-15.4); Mean Corpuscular HGB Conc 30.5 g/dL (31.6-35.5); Mean Corpuscular Hemoglobin 27.3 pg (28.0-33.3); Mean Corpuscular Volume 89.5 fL (83.0-100.0); Mean Platelet Volume 10.2 fL (9.4-12.4); Platelet Count 406 K/mcL (140-400); Red Blood Count 3.33 M/mcL (3.82-4.97); Red Cell Distribution Width 15.2 % (11.5-14.5)
[2017-07-24] MEDS: Ipratropium/Albuterol Neb 3 ML IH SCH ×3 (03:55→11:18)
[2017-07-24] MEDS: Piperacillin/Tazobactam 3.375 GM in D5% in Water (Mini-Bag+) 100 ML IVPB SCH (05:08)
[2017-07-24] MEDS: Heparin 25,000 UNIT/500 ML D5W 25,000 UNIT/500 ML MLS IVC SCH (05:09)
[2017-07-24] MEDS: Acetaminophen 325 MG TABLET PO PRN (05:55)
[2017-07-24 06:42] VITALS: BP 129/66
[2017-07-24] MEDS ORDERED: Aspirin 81 MG TAB.CHEW GTUBE SCH (09:30)
[2017-07-24] MEDS ORDERED: *HR* LORazepam 1 MG TABLET GTUBE PRN (09:36)
[2017-07-24] MEDS ORDERED: *HR* HYDROmorphone (PF) 1 MG/ML SYRINGE IVP PRN (10:30)
--- NOTE | 2017-07-24 10:30 | Discharge Summary ---
Date of Encounter: 07/24/17 Time of Encounter: 10:10 - Discharge Diagnosis (1) Pancreatitis Priority: Primary Status: Acute Qualifiers: Chronicity: acute Pancreatitis type: unspecified pancreatitis type Acute pancreatitis complication: infected necrosis Qualified Code(s): K85.92 - Acute pancreatitis with infected necrosis, unspecified (2) Sepsis Priority: Secondary Status: Acute Qualifiers: Sepsis type: sepsis due to unspecified organism Qualified Code(s): A41.9 - Sepsis, unspecified organism (3) Afib Priority: Secondary Status: Chronic Qualifiers: Atrial fibrillation type: persistent Qualified Code(s): I48.1 - Persistent atrial fibrillation (4) HTN (hypertension), benign Priority: Secondary Status: Chronic - Discharge Medications Home Medications: Albuterol Sulfate [Ventolin Hfa] 2 puff IH Q4H PRN 07/14/17 [History] Amlodipine Besylate 10 mg PO BID 07/14/17 [History] Aspirin [Ecotrin] 325 mg PO DAILY 07/14/17 [History] Atorvastatin [Lipitor] 40 mg PO HS 07/14/17 [History] DULoxetine [Cymbalta] 80 mg PO DAILY 07/14/17 [History] Ergocalciferol (VITAMIN D2) [Drisdol (50,000 Unit)] 50,000 unit PO QWEEK [History] Estrogens, Conjugated [Premarin Cream] 1 appl VG HS 07/14/17 [History] Gabapentin [Neurontin] 300 mg PO HS 07/14/17 [History] Isosorbide MONOnitrate (24 HR) [Imdur] 30 mg PO DAILY 07/14/17 [History] LORazepam [Ativan] 1 mg PO TID PRN 07/14/17 [History] Losartan Potassium [Cozaar] 100 mg PO DAILY 07/14/17 [History] Metoprolol [Lopressor] 50 mg PO BID 07/14/17 [History] Mirtazapine [Remeron] 15 mg PO HS 07/14/17 [History] [place]-3 Fatty Acids [Fish Oil] 1,200 mg PO BID 07/14/17 [History] Ondansetron ODT [Zofran ODT] 4 mg SL Q4HR #15 tab.rapdis 07/14/17 [Rx] Oxybutynin Chloride [Ditropan Xl] 10 mg PO DAILY 07/14/17 [History] Prazosin HCl [Minipress] 5 mg PO HS 07/14/17 [History] Spironolactone [Aldactone] 100 mg PO DAILY 07/14/17 [History] Docusate [Colace] 100 mg PO BID 07/19/17 [History] Allergies/Adverse Reactions: 3 Allergy/AdvReac Type Severity Reaction Status Date / Time lisinopril AdvReac Difficulty Verified 07/18/17 15:12 Swallowing morphine AdvReac Vomiting Verified 07/18/17 15:12 Procedures/tests Complete & Pending: Procedures Performed prior 72 hours Category Date Time Status abdominal/pelvis CT with contrast [CT abd pelvis w iv Cat Scan 07/21/17 14:40 Completed and oral] [CT] Stat Date of admission: 07/19/17 13:37 Primary care physician: Oleksandr Meier MD Consults: 07/18/17 23:42 Consult to Gastroenterology [CONS] Routine Consulting Provider: Gastroenterology Chanell Reason for Consult: COLITIS Call Completed: No 07/19/17 10:38 Consult to Cardiology [CONS] Routine Comment: Consulting Provider: Cardiology Chanell Reason for Consult: New onset A fib..with recent stroke like symptoms Call Completed: Yes 07/20/17 09:51 Consult to Surgery [CONS] Routine Consulting Provider: Jeovany Oconnell Reason for Consult: Acute Colitis Call Completed: Yes 07/23/17 14:05 Consult to Nutrition [CONS] Routine Comment: Consulting Provider: NUTRITION Reason for Dietary Consult: TF Start and Manage Other:: patient needs management of duodenal feeding tube. Discharging clinician: Torey Thompson Anticipated date of discharge: 07/24/17 - Patient Status Disposition: Transfer Critical Access Hosp Condition: Serious Functional capacity at discharge: bed bound Overall status at discharge: patient is not back to baseline - Discharge Instructions Follow Up With: Oleksandr Meier MD [Primary Care Provider] - 07/30/17 1:30 pm - Diet and Activity Activity: other (as instructed by [facility]) Hospital course: Ms. Downey is a 52 year old female who presented to the emergency room on 07/18 due to abdominal pain, nausea, vomiting and diarrhea. She also had palpitations and sensation of her heart racing. She was found to have atrial fibrillation with rapid ventricular response in the emergency room. A CT scan of the abdomen also demonstrated colitis at the splenic flexure and pancreatitis. Off note, the patient had removal of a bladder mesh 3 weeks prior to presentation to the hospital. The patient was admitted with a presumed diagnosis of colitis, pancreatitis and atrial fibrillation with rapid ventricular response. Surgery and cardiology were consulted and the patient had an echocardiogram performed. Echocardiogram revealed preserved ejection fraction of 60% with normal left and regular chamber size, wall thickness and function. Indeterminate diastolic dysfunction was seen. Normal right ventricle or structure and function were seen. Patient was placed on rate control medications intravenously and eventually transitioned to by mouth rate control medication. The patient was initially placed on clear liquid diet and advance to full liquids. However, the patient continued to have abdominal pain and fevers during the night. Hence, the patient had a repeat CT scan of the abdomen/pelvis. 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 It also demonstrated a pancreatic pseudocyst. Due to splenic infarcts and the patient's atrial fibrillation, the patient was placed on a heparin drip despite the increased risk of hemorrhagic transformation of the pancreas. She was also placed on broad-spectrum antibody therapy with Zosyn. [facility] oncology was consulted to determine if the patient would require endoscopic drainage of the pseudocyst and/or necrotic tissue. Gastroenterology did not feel that the patient would require a drainage when they evaluated the patient. However, they recommended a duodenal feeding tube. The patient got the same on 07/23/2017 and tube feeds were started the same day. On the day of transfer, the patient was reporting worsening shortness of breath and continued abdominal pain on the left side. She continues to have fevers of 101.2 degrees Fahrenheit overnight and her white count remains greater than 20, 000. She has also developed tachycardia and tachypnea. Hence, it was felt by surgery that the patient may require pancreatic necrosectomy and that it was best for the patient to be managed by a pancreatic team at [facility]. [facility] transfer center was contacted. The patient has been accepted by Dr. Aleah Khan with the hepatobiliary pancreatic division at [place]. The patient will be transferred when bed is available. - Time Spent with Patient Total time spent providing and/or coordinating discharge services: Greater than 30 minutes (50 min) - Constitutional Vitals: Temp Pulse Resp BP Pulse Ox 97.6 F 111 16 129/66 93 07/24/17 06:41 07/24/17 06:41 07/24/17 07:51 07/24/17 06:41 07/24/17 07:51 General appearance: Present: A&O X 3, answers questions appropriately Exam: Gen.: Lying in bed. Moderate distress. Chest: Clear to auscultation bilaterally. No adventitious sounds present. CVS: First and second heart sounds present. No murmurs, rubs or gallops. Tachycardia present. Abdomen: Soft, tenderness to palpation in the left upper and lower quadrants, nondistended. Bowel sounds present. No hepatosplenomegaly. - VTE Documentation of Mechanical Device: Intermittent pneumatic compression device
[2017-07-24 15:13] LABS: Immunoglobulin G Subclass 1 319 mg/dL (240-1118)
[2017-07-24 15:14] LABS: Immunoglobulin G Subclass 2 221 mg/dL (124-549); Immunoglobulin G Subclass 3 40 mg/dL (21-134); Immunoglobulin G Subclass 4 20 mg/dL (1-123)
[2017-07-24] MEDS ORDERED: Sennosides/Docusate Sodium TABLET GTUBE SCH (21:00)
[2017-07-24] MEDS ORDERED: Gabapentin 300 MG CAPSULE GTUBE SCH (21:00)
[2017-07-24] MEDS ORDERED: Mirtazapine 15 MG TABLET GTUBE SCH (21:00)
== END 2017-07-24 13:02 | disposition critical access hospital (66) | DRG 710 ==
LOC: 2NENU → SUATTDRO 21:21
PROVIDERS: ADMIT Internal Medicine; ATTEND Internal Medicine Sleep Medicine